=== PATIENT | male | born 1980 | race Hispanic/Latino ===

== ENCOUNTER 2018-03-03 20:01 | Inpatient (IN) | payer OTHER, SELFPAY ==
[~2018-03-03 20:01] MED LIST: ISOVUE-370 76%-LOCM 1 ML ONE
[2018-03-03 20:29] LABS: Hemoglobin 16.3 g/dL (14.0-18.0); Mean Corpuscular Hemoglobin 30.7 pg (27.0-31.0); Mean Corpuscular Volume 87.6 fL (78.0-98.0); Red Blood Cell (RBC) Count 5.32 mill/uL (4.70-6.10); White Blood Cell (WBC) Count 14.6 thou/uL (4.8-10.8)
[2018-03-03 20:30] LABS: #Basophils 0.1 thou/uL (0.0-0.2); #Eosinphils 0.2 thou/uL (0.0-0.7); #Lymphocytes 3.3 thou/uL (1.20-3.40); #Monocytes 1.1 thou/uL (0.11-0.59); #Neutrophils 9.9 thou/uL (1.40-6.50); %Basophils 0.5 % (0.0-1.0); %Eosinophils 1.6 % (0.0-10.0); %Lymphocytes 22.9 % (21.0-51.0); %Monocytes 7.3 % (0.0-10.0); %Neutrophils 67.7 % (42.0-75.0); Mean Platelet Volume 9.2 fL (7.4-10.4); Platelet Count 212 thou/uL (130-400); RBC Distribution Width 12.2 % (11.5-14.5)
[2018-03-03 20:37] LABS: INR-International Normal Ratio 0.9; PTT 24.7 SEC (22.9-36.1); Prothrombin Time 12.7 SEC (12.0-14.7)
[2018-03-03 20:43] LABS: Acetaminophen Less than 6.0 mcg/mL (10.0-30.0); Alcohol Less than 10 mg/dL (Less than 10); Salicylate Less than 8.0 mg/dL (15.0-30.0)
[2018-03-03 20:44] LABS: ALT (SGPT) 16 U/L (8-55); AST (SGOT) 20 U/L (5-34); Albumin 4.2 g/dL (3.5-5.0); Alkaline Phosphatase 79 U/L (40-150); Anion Gap 15 mmol/L (10-20); BUN (Urea Nitrogen) 21 mg/dL (8.9-20.6); Bilirubin, Total 0.3 mg/dL (0.2-1.2); CK (CPK) 85 U/L (30-200); Calc. Creatinine Clearance 0 mL/min (70-130); Calcium 9.5 mg/dL (7.8-10.44); Carbon Dioxide 19 mmol/L (22-29); Chloride 108 mmol/L (98-107); Estimated GFR-MDRD 62; Globulin 3.6 g/dL (2.4-3.5); Glucose 97 mg/dL (70-105); Lipase 18 U/L (8-78); Magnesium 2.3 mg/dL (1.6-2.6); Potassium 4.2 mmol/L (3.5-5.1); Protein, Total 7.8 g/dL (6.0-8.3); Sodium 138 mmol/L (136-145)
[2018-03-03 20:47] LABS: CKMB 1.2 ng/mL (0-6.6); Troponin I Less than 0.010 ng/mL (< 0.028)
--- NOTE | 2018-03-03 20:56 | CT ---
NONCONTRAST HEAD CT: 03/03/18 COMPARISON: 05/20/14. HISTORY: Altered mental status. Chest pain. Shortness of breath. Dizziness, starting approximately at 1800 paulo rs. Stroke alert. FINDINGS: No parenchymal hemorrhage. No extra-axial hematoma. No midline shift. Basilar cisterns are patent. Br ain volume is age appropriate. Cortical petersen-white matter differentiation is preserved. Ventricles and sulci are patent and symmetric. Adequate aeration of the sinuses and mastoid air cells. Calvarium is intact. IMPRESSION: No acute intracranial process. Results of the study discussed with Dr. Hernandez, 03/03/18 at 8:43 p.m. Code CR POS: [facility]
--- NOTE | 2018-03-03 20:58 | RAD ---
ONE VIEW CHEST: 03/03/18 HISTORY: Chest pain, shortness of breath. COMPARISON: 08/13/16. HISTORY: Stable left sided defibrillator. Persistent cardiomegaly. The pulmonary vessels and hilum are normal. Costophrenic angles are clear. No mass. No consolidation. No pneumothorax or osseous abnormality. IMPRESSION: No acute cardiopulmonary process. POS: [facility]
[2018-03-03] MEDS ORDERED: Tranexamic Acid 1,000 MG/10 ML VIAL ONE (21:04)
--- NOTE | 2018-03-03 21:04 | CT ---
CT ANGIOGRAM OF THE THORACIC AORTA 03/03/17 HISTORY: Evaluate for thoracic aorta dissection. COMPARISON: None. TECHNIQUE: CT angiogram of the thoracic aorta is performed in the axial plane. Three dimensional reformatted sandor ges are submitted for interpretation. FINDINGS: Heart is enlarged. There is no significant pericardial fluid. There is adequate contrast opacificatio n of the pulmonary artery to the level of the lobar arteries. No filling defect to suggest thromboemb olism. Unremarkable thyroid gland. The visualized upper solid organs are unremarkable. Trachea and central bronchi are patent. Minimal atelectatic changes of the lung parenchyma. No consol idation or mass. No pleural effusion or pneumothorax. The thoracic aorta and upper abdominal aorta have an overall normal caliber. No periaortic fat strand ing. No aneurysm. No dissection. The visualized celiac artery origin, superior mesenteric artery orig in, bilateral renal artery ostia are unremarkable. The visualized cervical carotid and vertebral arteries are grossly patent. Bilateral subclavian arter ies are grossly unremarkable. IMPRESSION: No evidence of thoracic aortic aneurysm or dissection. Results of the study discussed with Dr. Hernandez, 03/03/18 at 8:55 p.m. Code CR POS: [facility]
[2018-03-03] MEDS ORDERED: hydrALAZINE 20 MG/ML VIAL SLOW IVP PRN (22:52)
[2018-03-03] MEDS ORDERED: Labetalol HCl 100 MG/20 ML VIAL SLOW IVP PRN (22:52)
[2018-03-03] MEDS ORDERED: Ondansetron PF 4 MG/2 ML Vial IVP PRN (22:54)
[2018-03-03] MEDS ORDERED: Acetaminophen 325 MG TAB PO PRN (22:54)
[2018-03-03] MEDS ORDERED: Ondansetron ODT 4 MG TAB PO PRN (22:54)
--- NOTE | 2018-03-03 23:37 | CT ---
CT ANGIOGRAM OF THE HEAD CT ANGIOGRAM OF THE NECK 03/03/18 HISTORY: Stroke, stroke alert. Right sided weakness. COMPARISON: None. TECHNIQUE: CT angiogram of the head and neck are performed in the axial plane. Three dimensional reformatted sandor ges are submitted for interpretation. FINDINGS: Postcontrast head CT: No pathologic enhancement of the brain parenchyma. Cortical petersen-white matter differentiation appears to be preserved. Bilateral ocular lenses are appropriately located. Unremarkable orbits. Adequate aeration of the sinu ses and mastoid air cells. Aerodigestive tract is patent. No mucosal abnormality. Midline fatty raphae of the tongue is preserve d. Epiglottis has a normal caliber. No prevertebral soft tissue swelling. Symmetric attenuation of the parotid and submandibular glands. Sternocleidomastoid muscles and thyroi d gland are unremarkable. No evidence of lymphadenopathy by size criteria in the left neck. There is a mildly prominent right l evel II lymph node, nonspecific. Lymph node measures 1.1 x 1.1 cm. Nonspecific mild fullness of the p alatine tonsils. Upper mediastinum and lung apices are unremarkable. Cervical spine vertebral body height is maintained. There is no evidence of fracture. No significant canal stenosis or foraminal narrowing. Evaluation is limited by technique There is some evidence of o steophyte formation with at least some mass effect upon the central spinal canal at C3-C4, C4-C5 and C5-C6. Evaluation is limited by technique CT ANGIOGRAM: Visualized aortic arch has an appropriate enhancement and luminal diameter. RIGHT CAROTID: The right carotid artery origin has appropriate enhancement and luminal diameter. The common carotid artery, carotid bifurcation, and internal carotid artery have appropriate enhancement and luminal hilario meter. LEFT CAROTID: Left carotid artery origin has appropriate enhancement and luminal diameter. The left common carotid artery, carotid bifurcation, and internal carotid artery have appropriate enhancement and luminal hilario meter. Both subclavian arteries are patent. Bilateral cervical vertebral arteries are also patent throughout their course in the neck. Left vertebral artery is slightly larger on the contralateral side. CT ANGIOGRAM OF THE HEAD: There is symmetric enhancement and luminal diameter of the distal cervical intracranial internal sin tid arteries. ANTERIOR CIRCULATION: Symmetric enhancement and luminal diameter of the A1 and M1 segments. Symmetric enhancement and lumin al diameter of the proximal A2 segments and MCA branches. POSTERIOR CIRCULATION: Demonstrates normal caliber intracranial vertebral arteries. The left and right PICA artery origins a re grossly unremarkable. Both vertebral arteries supply normal appearing basilar artery. The left and right P1 segments have appropriate enhancement and luminal diameter. IMPRESSION: 1. Unremarkable CT angiogram of the [place]. 2. Unremarkable CT angiogram of the neck. No significant stenosis based upon NASCET criteria. 3. Degenerative changes of the cervical spine, incompletely evaluated. POS: [facility]
[2018-03-03 23:47] LABS: Troponin I 0.033 ng/mL (< 0.028)
[2018-03-04 02:19] LABS: #Basophils 0.1 thou/uL (0.0-0.2); #Eosinphils 0.3 thou/uL (0.0-0.7); #Lymphocytes 3.7 thou/uL (1.20-3.40); #Monocytes 1.1 thou/uL (0.11-0.59); #Neutrophils 9.4 thou/uL (1.40-6.50); %Basophils 0.6 % (0.0-1.0); %Eosinophils 1.8 % (0.0-10.0); %Lymphocytes 25.6 % (21.0-51.0); %Monocytes 7.4 % (0.0-10.0); %Neutrophils 64.6 % (42.0-75.0); Mean Corpuscular Hemoglobin 29.9 pg (27.0-31.0); Mean Corpuscular Volume 87.8 fL (78.0-98.0); Mean Platelet Volume 8.8 fL (7.4-10.4); Platelet Count 211 thou/uL (130-400); RBC Distribution Width 12.2 % (11.5-14.5); Red Blood Cell (RBC) Count 5.35 mill/uL (4.70-6.10); White Blood Cell (WBC) Count 14.5 thou/uL (4.8-10.8)
[2018-03-04 02:45] LABS: Troponin I 0.029 ng/mL (< 0.028)
[2018-03-04 06:51] LABS: ALT (SGPT) 14 U/L (8-55); AST (SGOT) 14 U/L (5-34); Alkaline Phosphatase 63 U/L (40-150); Anion Gap 11 mmol/L (10-20); BUN (Urea Nitrogen) 21 mg/dL (8.9-20.6); Bilirubin, Total 0.6 mg/dL (0.2-1.2); Calc. Creatinine Clearance 152 mL/min (70-130); Carbon Dioxide 23 mmol/L (22-29); Cardiac Risk 3.6 (Less than 4.5); Chloride 107 mmol/L (98-107); Cholesterol 139 mg/dl (< 200 Desired); Estimated GFR-MDRD 77; Glucose 82 mg/dL (70-105); HDL Cholesterol 39 mg/dL (>60 Neg Risk); LDL Cholesterol, Calculated 79 mg/dL; Potassium 3.8 mmol/L (3.5-5.1); Sodium 137 mmol/L (136-145); Triglycerides 106 mg/dL (Less than 150)
[2018-03-04] MEDS: Furosemide 20 MG TAB PO SCH (08:35)
[2018-03-04] MEDS: Spironolactone 25 MG TAB PO SCH (08:35)
[2018-03-04] MEDS: Famotidine 20 MG TAB PO SCH ×2 (08:35→21:31)
[2018-03-04] MEDS: Carvedilol 3.125 MG TAB PO SCH ×2 (08:35→19:29)
[2018-03-04] MEDS: Lisinopril 2.5 MG TAB PO SCH (08:36)
[2018-03-04] MEDS ORDERED: Famotidine/PF 20 mg/2ml Vial SLOW IVP SCH (09:00)
[2018-03-04] MEDS ORDERED: niCARdipine HCl 25 MG in Sodium Chloride 0.9% 250 ML 240 ML IVPB PRN (09:17)
[2018-03-04] MEDS ORDERED: Labetalol HCl 100 MG/20 ML VIAL SLOW IVP PRN (09:17)
[2018-03-04] MEDS ORDERED: Communication Order-Pharmacy FS SCH (09:17)
[2018-03-04] MEDS ORDERED: hydrALAZINE 20 MG/ML VIAL SLOW IVP PRN (09:20)
[2018-03-04] MEDS ORDERED: niCARdipine HCl 25 MG in Sodium Chloride 0.9% 250 ML 240 ML IVPB SCH (09:45)
--- NOTE | 2018-03-04 10:04 | RAD ---
PORTABLE CHEST: HISTORY: Syncope, TIA. FINDINGS: Heart size is enlarged. An internal defibrillator device is present. The lungs are clear of infiltr ates. No signs of failure. IMPRESSION: Cardiomegaly. POS: [facility]
--- NOTE | 2018-03-04 11:28 | CON ---
DATE OF CONSULTATION: 03/04/2018 REASON FOR CONSULTATION: Stroke and cardiomyopathy. HISTORY OF PRESENT ILLNESS: Mr. Shafer is a pleasant 37-year-old white gentleman who comes to the hospital for right-sided weakness. He is currently unable to move his right arm and right leg. He is able to talk without problems. He had a TPA given to him after CT showed no evidence of bleeding. He had a CT angiogram of the head and neck and these were unremarkable suggestive of his TPA having have worked. He has a history of a nonischemic cardiomyopathy with an EF about 10%, thought to be r elated to alcohol use and substance abuse. He has not been following up with anyone recently. He garcia s been in intermediate and currently is under custody of the [employer] department. He initially had chest pain at that time where he was brought in, but he has not had any chest pain s sahil. PAST MEDICAL HISTORY: 1. Nonischemic cardiomyopathy, EF of 10% to 15%. 2. Hypertension. 3. Hyperlipidemia. 4. Noncompliance. PAST SURGICAL HISTORY: 1. Heart catheterization and no coronary artery disease. 2. AICD placement. OUTPATIENT MEDICATIONS: Include: 1. Lasix 20 mg a day. 2. Lisinopril 2.5 mg a day. 3. Carvedilol 3.125 mg b.i.d. ALLERGIES: PENICILLINS. FAMILY HISTORY: Noncontributory. SOCIAL HISTORY: No alcohol use. 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 REVIEW OF SYSTEMS: A 12-point review of systems was done and is all negative unless stated in histor y of present illness. PHYSICAL EXAMINATION: VITAL SIGNS: Temperature 98.0, pulse 75, respiratory rate 18, satting 97% on room air, blood pressur e 109/62. GENERAL: Awake, alert, oriented x3, in no distress. HEENT: Normocephalic, atraumatic. NECK: Supple. LUNGS: Lungs are clear. CARDIOVASCULAR: S1, S2, no S3, S4, no murmur. ABDOMEN: Soft, positive bowel sounds. EXTREMITIES: No edema. SKIN: Warm and dry. NEUROLOGIC: Right-sided weakness. LABORATORY WORK: Reviewed. CBC was reviewed. Coags, chemistries were reviewed. Troponin is in the indeterminate range undetectable then 0.03, then 0.02. BNP was 25. Albumin of 4.0. Triglycerides of 106. Cholesterol of 139, LDL of 79, HDL of 39. Toxicology, everything is undetectable. IMAGING: CT of the [place] with contrast was normal. CT dissection was unremarkable. CT o f the brain was unremarkable as well. ASSESSMENT: 1. Acute cerebrovascular accident. 2. Nonischemic cardiomyopathy. 3. Dilated cardiomyopathy. 4. Status post automatic implantable cardioverter defibrillator placement. 5. Noncompliance. PLAN: 1. Certainly with a history of a dilated cardiomyopathy and having an acute CVA, this brings the pos sibility of this being a cardioembolic phenomenon most likely. I would recommend full anticoagulatio n with any of the new agents or warfarin, either Eliquis, Xarelto, Pradaxa or warfarin. I would not start this just yet. He had TPA and I would probably begin the blood thinner in about 2 weeks from t he date of the insult to reduce the risk of intracranial bleed and hemorrhagic conversion. 2. He needs to be on a baby aspirin every day for the rest of his life. 3. We would recommend the addition of a statin drug as well. Thank you for letting us to participate in the care of your patient. Over 45 minutes spent at bedside for Critical Care.
[2018-03-04 16:05] VITALS: BMI 37.3
--- NOTE | 2018-03-04 16:15 | PDOC.PN ---
- Subjective Encounter Start Date: 03/04/18 Encounter Start Time: 10:30 Patient seen and examined for Acute CVA s/p TPA. No new focal deficits. Able to move his Rt hand to some extent. - Objective Resuscitation Status: Resuscitation Status FULL:Full Resuscitation MAR Reviewed: Yes Vital Signs & Weight: Vital Signs (12 hours) Temp Pulse BP Pulse Ox 03/04/18 12:00 98.3 F 03/04/18 09:51 90 153/94 H 03/04/18 08:36 67 153/94 H 03/04/18 08:00 98 F 96 Weight Weight 252 lb 6.868 oz Most Recent Monitor Data Heart Rate from ECG 75 NIBP 129/84 NIBP BP-Mean 94 Respiration from ECG 21 SpO2 96 I&O: 03/03/18 03/04/18 03/05/18 06:59 06:59 06:59 Intake Total 720 370 Output Total 750 860 Balance -30 -490 Result Diagrams: 03/05/18 03:54 03/05/18 03:54 Additional Labs: Accuchecks 03/03/18 20:16 POC Glucose 99 Radiology Reviewed by me: Yes (CT brain - neg) EKG Reviewed by me: Yes (Tele paced) Phys Exam - Physical Examination Constitutional: NAD Respiratory: no wheezing, no rales, no rhonchi, clear to auscultation bilateral Cardiovascular: RRR, no rub no heaves/pulsations Gastrointestinal: soft, non-tender, no distention, positive bowel sounds Musculoskeletal: no edema, pulses present Neurological: moves all 4 limbs (except R sided with diminished sensation on the Rt) Psychiatric: normal affect, A&O x 3 Skin: no rash Dx/Plan - Plan DVT proph w/SCDs 1. Acute CVA with Rt hemiparesis s/p TPA 2. Chronic systolic HF EF 20% - Stage C 3. Obesity BMI 37 4. HTN crisis 5. Other issues per H&P by Dr Brooks PLAN: Add Cardene drip and Labetalol PRN for SBP <180 Await Echo Cont ASA Consult Cardiology due to possible Embolic CVA No MRI due to AICD Review of Systems - Review of Systems Respiratory: negative: Cough, Dry, Shortness of Breath, Hemoptysis, SOB with Excertion, Pleuritic Pain, Sputum, Wheezing Cardiovascular: negative: chest pain, palpitations, orthopnea, paroxysmal nocturnal dyspnea, edema, light headedness, other Gastrointestinal: negative: Nausea, Vomiting, Abdominal Pain, Diarrhea, Constipation, Melena, Hematochezia, Other - Medications/Allergies Allergies/Adverse Reactions: Allergies Allergy/AdvReac Type Severity Reaction Status Date / Time Penicillins Allergy Verified 03/04/18 00:08 Medications: Current Medications Acetaminophen (Tylenol) 650 mg PO Q4H PRN PRN Reason: Headache/Fever/Mild Pain (1-3) Last Admin: 03/04/18 02:23 Dose: 650 mg Aspirin (Ecotrin) 325 mg PO DAILY [facility] Atorvastatin Calcium (Lipitor) 80 mg PO HS [facility] Atorvastatin Calcium (Lipitor) 40 mg PO HS [facility] Carvedilol (Coreg) 3.125 mg PO BID-[facility] Last Admin: 03/04/18 08:35 Dose: 3.125 mg Famotidine (Pepcid) 20 mg PO BID [facility] Last Admin: 03/04/18 08:35 Dose: 20 mg Furosemide (Lasix) 20 mg PO DAILY [facility] Last Admin: 03/04/18 08:35 Dose: 20 mg Hydralazine HCl (Apresoline) 10 mg SLOW IVP Q4H PRN PRN Reason: SBP Greater Than 180 Nicardipine HCl 25 mg/ Sodium (Chloride) 250 mls @ 0 mls/hr IVPB INF [facility]; Protocol Last Admin: 03/04/18 10:07 Dose: 250 mls Labetalol HCl (Normodyne) 10 mg SLOW IVP Q2H PRN PRN Reason: SBP > 180 or DBP > 105 Last Admin: 03/04/18 09:51 Dose: 10 mg Lisinopril (Zestril) 2.5 mg PO DAILY [facility] Last Admin: 03/04/18 08:36 Dose: 2.5 mg Lorazepam (Ativan) 1 mg SLOW IVP Q4H PRN PRN Reason: Anxiety/Agitation Miscellaneous Information (Communication Order-Pharmacy) 1 each FS ONE [facility] Stop: 03/04/18 21:00 Ondansetron HCl (Zofran Odt) 4 mg PO Q6H PRN PRN Reason: Nausea/Vomiting Ondansetron HCl (Zofran) 4 mg IVP Q6H PRN PRN Reason: Nausea/Vomiting Sodium Chloride (Flush - Normal Saline) 10 ml IVF PRN PRN PRN Reason: Saline Flush Spironolactone (Aldactone) 25 mg PO DAILY [facility] Last Admin: 03/04/18 08:35 Dose: 25 mg
--- NOTE | 2018-03-04 18:03 | CON ---
DATE OF CONSULTATION: 03/04/2018 Mr. Shafer is an [facility] inmate who presented with hemiplegia. He is presenting with chest discomfort. Imaging has not showed any hemorrhage or thrombotic event. He has a pacemaker defibrillator in place that is not MRI compatible apparently, so he cannot have an MRI. He was given TPA and is in the ICU for TPA observation protocol. PAST MEDICAL HISTORY: 1. Remarkable for cardiomyopathy with defibrillator being placed in the past, 2015. 2. History of hypertension. 3. Lipid disorder. 4. Negative cardiac catheterization for coronary artery disease. FAMILY HISTORY: Not obtained: SOCIAL HISTORY: He is a smoker, former methamphetamine user. Reports allergies to PENICILLIN. REVIEW OF SYSTEMS: 10 point review of systems completed, otherwise negative. PHYSICAL EXAMINATION: GENERAL: He is presenting with chest discomfort. VITAL SIGNS: Afebrile, heart rate is in the 70s, respiratory rate is 18, oximetry is 97%, blood pressure 109/62. HEAD: Unremarkable. NECK: Unremarkable. LUNGS: Clear. HEART: Regular rhythm. S1 and S2 are normal. ABDOMEN: Soft and nontender. EXTREMITIES: Without clubbing, cyanosis, or edema. He did not have a Babinski on either side. I think, we have to be concerned that he may have had an embolic event, but certainly imaging does not show that. Repeat imaging in a couple of days with a noncontrast CT would properly identify if he had a thrombotic or embolic event. It seems like his exam is a little inconsistent, reviewing the notes of other examiners.Neurology input would be helpful. We will continue to follow. He appears to be stable from a cardiopulmonary standpoint. This is a 70 minute consult, with greater than 50% of time spent on unit in coordination of care. SHEIL[facility]
--- NOTE | 2018-03-04 18:46 | CON ---
DATE OF CONSULTATION: 03/04/2018 IMPRESSION: 1. Probable small vessel stroke resulting in right hemiparesis. 2. History of congestive heart failure with ejection fraction of around 30%. 3. History of substance abuse. 4. Tobacco use. PLAN: 1. Repeat CT scan of the brain in the morning. 2. Start antiplatelet therapy after the 24-hour window. 3. Start statin as well. 4. PT and OT evaluations. Mr. Shafer is a 37-year-old male with a known history of congestive heart failure [facility] and had a CT angiogram done. There was no carotid or intracranial stenosis identified. Given his neurologic deficits, TPA was given around 9:00 last night. He has failed to s how any significant improvement in his strength. He denies any past history of similar events. He d oes report a frontal headache. He has otherwise been stable since admission. PAST MEDICAL HISTORY: As listed above. ALLERGIES: PENICILLIN. SOCIAL HISTORY: Positive for tobacco. FAMILY HISTORY: Noncontributory. REVIEW OF SYSTEMS: Positive for asthma and hepatic dysfunction in the past. PHYSICAL EXAMINATION: GENERAL: He is a well-nourished middle-aged man in no distress. VITAL SIGNS: Blood pressure 131/81, pulse 79 and in sinus rhythm, respirations 17, saturation is 96% . HEENT: Pupils are equal. Conjunctivae clear. Oropharynx clear. EXTREMITIES: No cyanosis, clubbing or edema. NEUROLOGIC: He is alert and cooperative. His speech is fluent and clear. There is a subtle right f acial droop. No sensory deficits were noted in the face. He reports some subjective decreased sensa tion in the right hand. He could partially move the right arm against gravity. He reports no antigr avity strength whatsoever in the right leg. Plantar response was mute on the right. No abnormal mov ements were seen. SUMMARY: A 37-year-old man who presents with a stroke. He may have thrown a small embolus to a deep vessel based on the lack of findings on CTA. I would suggest at least antiplatelet therapy after he has 24-hour window. 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
[2018-03-04] MEDS ORDERED: Famotidine 20 MG TAB PO SCH (21:00)
[2018-03-04] MEDS ORDERED: Atorvastatin Calcium 40 MG TAB PO SCH (21:00)
[2018-03-04] MEDS: Atorvastatin Calcium 40 MG TAB PO SCH (21:30)
[2018-03-05] MEDS: Lorazepam 2 MG/ML VIAL SLOW IVP PRN ×2 (01:05→21:36)
[2018-03-05 04:32] LABS: #Basophils 0.1 thou/uL (0.0-0.2); #Eosinphils 0.4 thou/uL (0.0-0.7); #Monocytes 1.1 thou/uL (0.11-0.59); #Neutrophils 9.2 thou/uL (1.40-6.50); %Basophils 0.8 % (0.0-1.0); %Eosinophils 2.7 % (0.0-10.0); %Lymphocytes 21.9 % (21.0-51.0); %Monocytes 8.2 % (0.0-10.0); %Neutrophils 66.5 % (42.0-75.0); Mean Corpuscular HGB CONC 34.2 g/dL (32.0-36.0); Mean Corpuscular Hemoglobin 30.1 pg (27.0-31.0); Mean Corpuscular Volume 88.2 fL (78.0-98.0); Mean Platelet Volume 9.1 fL (7.4-10.4); Platelet Count 198 thou/uL (130-400); RBC Distribution Width 12.2 % (11.5-14.5); Red Blood Cell (RBC) Count 5.31 mill/uL (4.70-6.10); White Blood Cell (WBC) Count 13.9 thou/uL (4.8-10.8)
[2018-03-05 04:57] LABS: ALT (SGPT) 15 U/L (8-55); AST (SGOT) 13 U/L (5-34); Albumin 4.1 g/dL (3.5-5.0); Alkaline Phosphatase 67 U/L (40-150); Anion Gap 11 mmol/L (10-20); BUN (Urea Nitrogen) 18 mg/dL (8.9-20.6); Bilirubin, Total 0.7 mg/dL (0.2-1.2); Calc. Creatinine Clearance 166 mL/min (70-130); Calcium 9.2 mg/dL (7.8-10.44); Carbon Dioxide 23 mmol/L (22-29); Cardiac Risk 4.2 (Less than 4.5); Chloride 106 mmol/L (98-107); Cholesterol 147 mg/dl (< 200 Desired); Estimated GFR-MDRD 86; Globulin 3.2 g/dL (2.4-3.5); Glucose 82 mg/dL (70-105); HDL Cholesterol 35 mg/dL (>60 Neg Risk); LDL Cholesterol, Calculated 83 mg/dL; Magnesium 2.2 mg/dL (1.6-2.6); Protein, Total 7.3 g/dL (6.0-8.3); Sodium 136 mmol/L (136-145); Triglycerides 144 mg/dL (Less than 150)
[2018-03-05] MEDS: Carvedilol 3.125 MG TAB PO SCH ×2 (08:44→16:58)
[2018-03-05] MEDS: Aspirin 325 mg Enteric Coated Tablet PO SCH (08:44)
[2018-03-05] MEDS: Furosemide 20 MG TAB PO SCH (08:44)
[2018-03-05] MEDS: Famotidine 20 MG TAB PO SCH ×2 (08:44→21:25)
[2018-03-05] MEDS: Lisinopril 2.5 MG TAB PO SCH (08:44)
[2018-03-05] MEDS: Spironolactone 25 MG TAB PO SCH (08:44)
[2018-03-05] MEDS ORDERED: Aspirin 81 mg Enteric Coated Tablet PO SCH (09:00)
--- NOTE | 2018-03-05 11:02 | PRG ---
DATE OF SERVICE: 03/05/2018 SUBJECTIVE: Mr. Shafer' vital signs are stable. Blood pressure 106/68, heart rate 75, respiratory rates in the teens, oximetry is 97 on 2 liters. He is moving his right upper extremity to command today, He has completed his TPA window for standard critical care unit. His ejection fraction is 20-25% on his echocardiogram done yesterday. OBJECTIVE: LUNGS: Clear. HEART: Regular rhythm. ABDOMEN: Soft and nontender. EXTREMITIES: Without edema. LABORATORY DATA: White count 13.9, hemoglobin 16.0, platelets 198,000. Electrolytes are normal. IMPRESSION: ? Cerebrovascular associated with cardiomyopathy. A CT was ordered by Dr. Weir today. We will continue to follow. He is stable to move out of Critical Care Unit in my opinion. Critical care time is 35 minutes. [facility]
--- NOTE | 2018-03-05 11:33 | CT ---
CT BRAIN WITHOUT CONTRAST: HISTORY: CVA post TPA. COMPARISON: CT brain 03/03/2018. FINDINGS: No acute hemorrhage. NO loss of petersen-white matter differentiation. No midline shift or mass effect. The calvarium is intact. The paranasal sinuses and mastoids are clear. IMPRESSION: No acute intracranial abnormality. POS: [facility]
--- NOTE | 2018-03-05 14:25 | PDOC.PN ---
- Subjective Encounter Start Date: 03/05/18 Encounter Start Time: 10:30 Patient seen and examined for Acute CVA. No new focal findings. RUE strength improving. No new complaints. No overnight events - Objective Resuscitation Status: Resuscitation Status FULL:Full Resuscitation MAR Reviewed: Yes Vital Signs & Weight: Vital Signs (12 hours) Temp Pulse Resp BP BP Pulse Ox 03/05/18 12:05 98.1 F 76 17 141/89 H 03/05/18 08:44 75 106/68 03/05/18 08:00 94 L 03/05/18 07:42 97 03/05/18 07:00 97.8 F 03/05/18 04:00 97.8 F 95 Weight Weight 251 lb Most Recent Monitor Data Heart Rate from ECG 78 NIBP 143/86 NIBP BP-Mean 102 Respiration from ECG 21 SpO2 96 I&O: 03/04/18 03/05/18 03/06/18 06:59 06:59 06:59 Intake Total 720 840 Output Total 750 1660 800 Balance -30 -820 -800 Result Diagrams: 03/05/18 03:54 03/05/18 03:54 EKG Reviewed by me: Yes (Tele SR) Phys Exam - Physical Examination Constitutional: NAD Respiratory: no wheezing, no rhonchi Cardiovascular: RRR, no rub Gastrointestinal: soft, non-tender, positive bowel sounds Musculoskeletal: no edema Neurological: moves all 4 limbs Dx/Plan - Plan DVT proph w/SCDs 1. Acute CVA with Rt hemiparesis s/p TPA 2. Chronic systolic HF EF 20% - Stage C 3. Obesity BMI 37 4. HTN crisis 5. Other issues per H&P by Dr Brooks PLAN: Add Cardene drip and Labetalol PRN for SBP <180 Echo reviewed Cont ASA / Statins Cont PT/OT Add Lovenox for DVT prophylaxis Transfer to Stroke Review of Systems - Review of Systems Respiratory: negative: Cough, Dry, Shortness of Breath, Hemoptysis, SOB with Excertion, Pleuritic Pain, Sputum, Wheezing Cardiovascular: negative: chest pain, palpitations, orthopnea, paroxysmal nocturnal dyspnea, edema, light headedness, other - Medications/Allergies Allergies/Adverse Reactions: Allergies Allergy/AdvReac Type Severity Reaction Status Date / Time Penicillins Allergy Verified 03/04/18 00:08 Medications: Current Medications Acetaminophen (Tylenol) 650 mg PO Q4H PRN PRN Reason: Headache/Fever/Mild Pain (1-3) Last Admin: 03/04/18 02:23 Dose: 650 mg Aspirin (Ecotrin) 325 mg PO DAILY [facility] Last Admin: 03/05/18 08:44 Dose: 325 mg Atorvastatin Calcium (Lipitor) 40 mg PO HS [facility] Last Admin: 03/04/18 21:30 Dose: 40 mg Carvedilol (Coreg) 3.125 mg PO BID-[facility] Last Admin: 03/05/18 08:44 Dose: 3.125 mg Famotidine (Pepcid) 20 mg PO BID [facility] Last Admin: 03/05/18 08:44 Dose: 20 mg Furosemide (Lasix) 20 mg PO DAILY [facility] Last Admin: 03/05/18 08:44 Dose: 20 mg Hydralazine HCl (Apresoline) 10 mg SLOW IVP Q4H PRN PRN Reason: SBP Greater Than 180 Nicardipine HCl 25 mg/ Sodium (Chloride) 250 mls @ 0 mls/hr IVPB INF [facility]; Protocol Last Admin: 03/04/18 10:07 Dose: 250 mls Labetalol HCl (Normodyne) 10 mg SLOW IVP Q2H PRN PRN Reason: SBP > 180 or DBP > 105 Last Admin: 03/04/18 09:51 Dose: 10 mg Lisinopril (Zestril) 2.5 mg PO DAILY [facility] Last Admin: 03/05/18 08:44 Dose: 2.5 mg Lorazepam (Ativan) 1 mg SLOW IVP Q4H PRN PRN Reason: Anxiety/Agitation Last Admin: 03/05/18 01:05 Dose: 1 mg Ondansetron HCl (Zofran Odt) 4 mg PO Q6H PRN PRN Reason: Nausea/Vomiting Ondansetron HCl (Zofran) 4 mg IVP Q6H PRN PRN Reason: Nausea/Vomiting Sodium Chloride (Flush - Normal Saline) 10 ml IVF PRN PRN PRN Reason: Saline Flush Last Admin: 03/05/18 01:05 Dose: 10 ml Spironolactone (Aldactone) 25 mg PO DAILY [facility] Last Admin: 03/05/18 08:44 Dose: 25 mg
--- NOTE | 2018-03-05 16:21 | PRG ---
DATE OF SERVICE: 03/05/2018 SUBJECTIVE: Edward Shafer had a repeat head CT this afternoon without contrast. No evidence of a t hrombotic event is seen. This would make me wonder if this is more hemiparesis for secondary gain. If he had something that would keep him from moving his right arm and right leg, I would expect to se e something on the CT. He was noticed to be able to push himself up in bed late yesterday afternoon using his right arm. We will continue with supportive care.
[2018-03-05] MEDS: Atorvastatin Calcium 40 MG TAB PO SCH (21:25)
[2018-03-06] MEDS: Furosemide 20 MG TAB PO SCH (08:10)
[2018-03-06] MEDS: Famotidine 20 MG TAB PO SCH ×2 (08:10→21:11)
[2018-03-06] MEDS: Spironolactone 25 MG TAB PO SCH (08:10)
[2018-03-06] MEDS: Aspirin 325 mg Enteric Coated Tablet PO SCH (08:10)
[2018-03-06] MEDS: Carvedilol 3.125 MG TAB PO SCH ×2 (08:10→16:25)
[2018-03-06] MEDS: Lisinopril 2.5 MG TAB PO SCH (08:10)
[2018-03-06] MEDS: Enoxaparin Sodium 40 MG/0.4 ML SYRINGE SC SCH (08:11)
--- NOTE | 2018-03-06 12:08 | PDOC.PN ---
- Subjective Encounter Start Date: 03/06/18 Encounter Start Time: 09:00 Patient seen and examined for CVA. No new focal deficits. No overnight events - Objective Resuscitation Status: Resuscitation Status FULL:Full Resuscitation MAR Reviewed: Yes Vital Signs & Weight: Vital Signs (12 hours) Temp Pulse Pulse Resp BP BP BP 03/06/18 11:31 98.5 F 73 18 133/88 03/06/18 09:50 81 123/87 03/06/18 08:15 03/06/18 08:10 69 109/63 03/06/18 07:35 97.8 F 69 18 109/63 03/06/18 04:00 97.6 F 74 14 95/57 L Pulse Ox 03/06/18 11:31 94 L 03/06/18 09:50 03/06/18 08:15 97 03/06/18 08:10 03/06/18 07:35 97 03/06/18 04:00 95 Weight Weight 248 lb Most Recent Monitor Data Heart Rate from ECG 78 NIBP 143/86 NIBP BP-Mean 102 Respiration from ECG 21 SpO2 96 I&O: 03/05/18 03/06/18 03/07/18 06:59 06:59 06:59 Intake Total 840 740 Output Total 1660 1915 Balance -820 -1175 Result Diagrams: 03/05/18 03:54 03/05/18 03:54 EKG Reviewed by me: Yes (Tele SR) Phys Exam - Physical Examination Constitutional: NAD Respiratory: no wheezing, no rhonchi Cardiovascular: RRR, no rub Gastrointestinal: soft, non-tender, positive bowel sounds Musculoskeletal: no edema Neurological: moves all 4 limbs except RLE. RLE strength 3-4/5 Psychiatric: normal affect, A&O x 3 Dx/Plan - Plan DVT proph w/SCDs 1. Acute CVA with Rt hemiparesis s/p TPA - improving 2. Chronic systolic HF EF 20% - Stage C 3. Obesity BMI 37 4. HTN crisis 5. Other issues per H&P by Dr Brooks PLAN: Cont ASA / Statins Cont PT/OT Lovenox for DVT prophylaxis DC planning Review of Systems - Review of Systems Respiratory: negative: Cough, Dry, Shortness of Breath, Hemoptysis, SOB with Excertion, Pleuritic Pain, Sputum, Wheezing Cardiovascular: negative: chest pain, palpitations, orthopnea, paroxysmal nocturnal dyspnea, edema, light headedness, other - Medications/Allergies Allergies/Adverse Reactions: Allergies Allergy/AdvReac Type Severity Reaction Status Date / Time Penicillins Allergy Verified 03/04/18 00:08 Medications: Current Medications Acetaminophen (Tylenol) 650 mg PO Q4H PRN PRN Reason: Headache/Fever/Mild Pain (1-3) Last Admin: 03/04/18 02:23 Dose: 650 mg Aspirin (Ecotrin) 325 mg PO DAILY [facility] Last Admin: 03/06/18 08:10 Dose: 325 mg Atorvastatin Calcium (Lipitor) 40 mg PO HS [facility] Last Admin: 03/05/18 21:25 Dose: 40 mg Carvedilol (Coreg) 3.125 mg PO BID-[facility] Last Admin: 03/06/18 08:10 Dose: 3.125 mg Enoxaparin Sodium (Lovenox) 40 mg SC 0900 [facility] Last Admin: 03/06/18 08:11 Dose: 40 mg Famotidine (Pepcid) 20 mg PO BID [facility] Last Admin: 03/06/18 08:10 Dose: 20 mg Furosemide (Lasix) 20 mg PO DAILY [facility] Last Admin: 03/06/18 08:10 Dose: 20 mg Hydralazine HCl (Apresoline) 10 mg SLOW IVP Q4H PRN PRN Reason: SBP Greater Than 180 Labetalol HCl (Normodyne) 10 mg SLOW IVP Q2H PRN PRN Reason: SBP > 180 or DBP > 105 Last Admin: 03/04/18 09:51 Dose: 10 mg Lisinopril (Zestril) 2.5 mg PO DAILY [facility] Last Admin: 03/06/18 08:10 Dose: 2.5 mg Lorazepam (Ativan) 1 mg SLOW IVP Q4H PRN PRN Reason: Anxiety/Agitation Last Admin: 03/05/18 21:36 Dose: 1 mg Ondansetron HCl (Zofran Odt) 4 mg PO Q6H PRN PRN Reason: Nausea/Vomiting Ondansetron HCl (Zofran) 4 mg IVP Q6H PRN PRN Reason: Nausea/Vomiting Sodium Chloride (Flush - Normal Saline) 10 ml IVF PRN PRN PRN Reason: Saline Flush Last Admin: 03/05/18 01:05 Dose: 10 ml Spironolactone (Aldactone) 25 mg PO DAILY [facility] Last Admin: 03/06/18 08:10 Dose: 25 mg
[2018-03-06] MEDS ORDERED: cloNIDine 0.1 MG TAB PO PRN (12:20)
[2018-03-06] MEDS: Atorvastatin Calcium 40 MG TAB PO SCH (21:11)
[2018-03-06] MEDS ORDERED: Nicotine 21 MG PATCH TOP SCH (21:45)
[2018-03-06] MEDS: Lorazepam 1 MG TAB PO PRN (22:18)
--- NOTE | 2018-03-06 23:15 | PDOC.CTH ---
<Gretta Hernandez - Last Filed: 03/06/18 23:09> Cardiology Progress Note - Subjective The pt seen and examined. No overnight events. No cardiac complaints. - Objective Vital Signs Temp Pulse Resp BP BP Pulse Ox 03/06/18 20:00 99 F 78 16 123/71 93 L 03/06/18 15:48 98.5 F 86 20 117/58 L 93 L 03/06/18 11:31 98.5 F 73 18 133/88 94 L Weight 248 lb 03/05/18 03/06/18 03/07/18 06:59 06:59 06:59 Intake Total 840 740 500 Output Total 1660 1915 500 Balance -820 -1175 0 - Physical Examination General/Neuro: alert & oriented x3 Neck: no JVD present Lungs: CTA Heart: RRR Abdomen: soft Extremities: other: (No edema) - Telemetry Telemetry Rhythm: SR - Labs Result Diagrams: 03/05/18 03:54 03/05/18 03:54 Troponin/CKMB CK-MB (CK-2) 1.2 ng/mL (0-6.6) 03/03/18 20:19 Troponin I 0.029 ng/mL (< 0.028) H 03/04/18 02:11 - Assessment/Plan 1. Acute CVA with Rt hemiparesis s/p TPA - improving; holding OACs for at least 2 wks for dilated CMY to prevent bleeding 2. Chronic systolic HF EF 20% - stable; On Bblocker, JESSEE, Lasix, and spironolactone 3. Dilated/Non-ischemic CMY 2/2 ETOH and illicit drug abuse and Hx of AICD placement - stable; possible starting OAC 4. HTN - stable with current med 5. Hyperlipidemia - on Statin 6. Obesity 7. Non-complaint of treatment - Strongly recommend to follow tx plan and f/u with her providers. MAR reviewed Review of Systems - Review of Systems Constitutional: reports: no symptoms reported EENTM: reports: no symptoms reported Respiratory: reports: no symptoms reported Cardiac (ROS): reports: no symptoms reported ABD/GI: reports: no symptoms reported : reports: no symptoms reported Musculoskeletal: reports: no symptoms reported Skin: reports: no symptoms reported <Cresencio Yang - Last Filed: 03/06/18 23:18> Cardiology Progress Note - Objective Vital Signs Temp Pulse Resp BP BP Pulse Ox 03/06/18 20:00 99 F 78 16 123/71 93 L 03/06/18 15:48 98.5 F 86 20 117/58 L 93 L 03/06/18 11:31 98.5 F 73 18 133/88 94 L Weight 248 lb 03/05/18 03/06/18 03/07/18 06:59 06:59 06:59 Intake Total 840 740 500 Output Total 1660 1915 500 Balance -820 -1175 0 - Labs Result Diagrams: 03/05/18 03:54 03/05/18 03:54 Troponin/CKMB CK-MB (CK-2) 1.2 ng/mL (0-6.6) 03/03/18 20:19 Troponin I 0.029 ng/mL (< 0.028) H 03/04/18 02:11 - Assessment/Plan Pt.seen and eval. by me.I agree with the A/P by the MARINE REPORTER.Nonew complaints.Chest clear.RRR.
[2018-03-07] MEDS: Lisinopril 2.5 MG TAB PO SCH (10:13)
[2018-03-07] MEDS: Spironolactone 25 MG TAB PO SCH (10:15)
[2018-03-07] MEDS: Aspirin 325 mg Enteric Coated Tablet PO SCH (10:15)
[2018-03-07] MEDS: Furosemide 20 MG TAB PO SCH (10:15)
[2018-03-07] MEDS: Famotidine 20 MG TAB PO SCH ×2 (10:15→20:16)
[2018-03-07] MEDS: Enoxaparin Sodium 40 MG/0.4 ML SYRINGE SC SCH (10:16)
[2018-03-07] MEDS: Carvedilol 3.125 MG TAB PO SCH ×2 (10:16→18:08)
--- NOTE | 2018-03-07 14:15 | PDOC.CTH ---
Cardiology Progress Note - Subjective No new issues. Remains weak on the right arm and leg, He is regaining some movement of the right hand. - Objective Vital Signs Temp Pulse Resp BP BP BP Pulse Ox 03/07/18 12:00 98.7 F 98 16 160/104 H 97 03/07/18 10:13 82 142/86 H 03/07/18 07:43 97.9 F 82 20 131/78 96 03/07/18 04:00 97.6 F 69 12 129/78 96 Weight 248 lb 03/06/18 03/07/18 03/08/18 06:59 06:59 06:59 Intake Total 740 500 Output Total 1915 500 Balance -1175 0 - Physical Examination General/Neuro: alert & oriented x3, NAD Neck: no JVD present Lungs: CTA, unlabored respirations Heart: RRR Abdomen: NT/ND Extremities: other: (no edema.) - Telemetry Telemetry Rhythm: NSR - Labs Result Diagrams: 03/05/18 03:54 03/05/18 03:54 Troponin/CKMB CK-MB (CK-2) 1.2 ng/mL (0-6.6) 03/03/18 20:19 Troponin I 0.029 ng/mL (< 0.028) H 03/04/18 02:11 - Assessment/Plan 1. Dilated non ischemic CM. 2. HTN 3. HLP 4. Acute CVA 5. LVEF at 10-15% 6. S/P AICD. PLAN: - Would start full anticoagulation 2 weeks after acute CVA, would start Eliquis 5 mg PO BID.
[2018-03-07] MEDS ORDERED: Lisinopril 2.5 MG TAB PO SCH (15:45)
[2018-03-07] MEDS ORDERED: Furosemide 20 MG TAB PO SCH (15:45)
--- NOTE | 2018-03-07 17:41 | PDOC.PN ---
- Subjective Encounter Start Date: 03/07/18 Encounter Start Time: 12:00 Patient seen and examined for Acute CVA. No new focal deficits. No new complaints. No overnight events - Objective Resuscitation Status: Resuscitation Status FULL:Full Resuscitation MAR Reviewed: Yes Vital Signs & Weight: Vital Signs (12 hours) Temp Pulse Resp BP BP Pulse Ox 03/07/18 16:00 99.0 F 97 20 139/88 96 03/07/18 15:42 88 139/88 03/07/18 12:00 98.7 F 98 16 160/104 H 97 03/07/18 10:13 82 142/86 H 03/07/18 07:43 97.9 F 82 20 131/78 96 Weight Weight 248 lb Most Recent Monitor Data Heart Rate from ECG 78 NIBP 143/86 NIBP BP-Mean 102 Respiration from ECG 21 SpO2 96 I&O: 03/06/18 03/07/18 03/08/18 06:59 06:59 06:59 Intake Total 740 500 Output Total 1915 500 Balance -1175 0 Result Diagrams: 03/05/18 03:54 03/05/18 03:54 EKG Reviewed by me: Yes (Tele SR) Phys Exam - Physical Examination Constitutional: NAD Respiratory: no wheezing, no rhonchi Cardiovascular: RRR, no rub Gastrointestinal: soft, non-tender, positive bowel sounds Musculoskeletal: no edema Neurological: moves all 4 limbs (except RLE, No new focal findings) Psychiatric: A&O x 3 Dx/Plan - Plan DVT proph w/lovenox, DVT proph w/SCDs 1. Acute CVA with Rt hemiparesis s/p TPA 2. Chronic systolic HF EF 20% - Stage C - s/p ACID 3. Obesity BMI 37 4. HTN crisis 5. Elevated troponins due to demand ischemia/Other issues per previous notes PLAN: Cont ASA / Statins Cont PT/OT Lovenox for DVT prophylaxis DC planning AM labs Review of Systems - Review of Systems Cardiovascular: negative: chest pain, palpitations, orthopnea, paroxysmal nocturnal dyspnea, edema, light headedness, other Gastrointestinal: negative: Nausea, Vomiting, Abdominal Pain, Diarrhea, Constipation, Melena, Hematochezia, Other - Medications/Allergies Allergies/Adverse Reactions: Allergies Allergy/AdvReac Type Severity Reaction Status Date / Time Penicillins Allergy Verified 03/04/18 00:08 Medications: Current Medications Acetaminophen (Tylenol) 650 mg PO Q4H PRN PRN Reason: Headache/Fever/Mild Pain (1-3) Last Admin: 03/04/18 02:23 Dose: 650 mg Apixaban (Eliquis) 5 mg PO BID [facility] Aspirin (Ecotrin) 325 mg PO DAILY [facility] Last Admin: 03/07/18 10:15 Dose: 325 mg Atorvastatin Calcium (Lipitor) 40 mg PO HS [facility] Last Admin: 03/06/18 21:11 Dose: 40 mg Carvedilol (Coreg) 3.125 mg PO BID-[facility] Last Admin: 03/07/18 10:16 Dose: 3.125 mg Clonidine (Catapres) 0.1 mg PO Q4H PRN PRN Reason: Systolic BP > 180 Enoxaparin Sodium (Lovenox) 40 mg SC 0900 [facility] Stop: 03/14/18 12:00 Last Admin: 03/07/18 10:16 Dose: 40 mg Famotidine (Pepcid) 20 mg PO BID [facility] Last Admin: 03/07/18 10:15 Dose: 20 mg Furosemide (Lasix) 20 mg PO DAILY [facility] Last Admin: 03/07/18 10:15 Dose: 20 mg Furosemide (Lasix) 20 mg PO NOW [facility] Stop: 03/07/18 17:45 Last Admin: 03/07/18 15:43 Dose: 20 mg Hydralazine HCl (Apresoline) 10 mg SLOW IVP Q4H PRN PRN Reason: SBP Greater Than 180 Labetalol HCl (Normodyne) 10 mg SLOW IVP Q2H PRN PRN Reason: SBP > 180 or DBP > 105 Last Admin: 03/04/18 09:51 Dose: 10 mg Lisinopril (Zestril) 5 mg PO DAILY [facility] Lisinopril (Zestril) 2.5 mg PO NOW [facility] Stop: 03/07/18 17:45 Last Admin: 03/07/18 15:42 Dose: 2.5 mg Lorazepam (Ativan) 1 mg SLOW IVP Q4H PRN PRN Reason: Anxiety/Agitation Last Admin: 03/05/18 21:36 Dose: 1 mg Lorazepam (Ativan) 1 mg PO HSPRN PRN PRN Reason: Anxiety Last Admin: 03/06/18 22:18 Dose: 1 mg Nicotine (Nicoderm Patch) 21 mg TOP Q24HR [facility] Ondansetron HCl (Zofran Odt) 4 mg PO Q6H PRN PRN Reason: Nausea/Vomiting Ondansetron HCl (Zofran) 4 mg IVP Q6H PRN PRN Reason: Nausea/Vomiting Sodium Chloride (Flush - Normal Saline) 10 ml IVF PRN PRN PRN Reason: Saline Flush Last Admin: 03/05/18 01:05 Dose: 10 ml Spironolactone (Aldactone) 25 mg PO DAILY [facility] Last Admin: 03/07/18 10:15 Dose: 25 mg
[2018-03-07] MEDS: Nicotine 21 MG PATCH TOP SCH ×2 (20:16→22:03)
[2018-03-07] MEDS: Atorvastatin Calcium 40 MG TAB PO SCH (20:16)
[2018-03-07] MEDS: Lorazepam 1 MG TAB PO PRN (22:13)
[2018-03-08 05:03] LABS: #Basophils 0.1 thou/uL (0.0-0.2); #Eosinphils 0.3 thou/uL (0.0-0.7); #Lymphocytes 2.7 thou/uL (1.20-3.40); #Monocytes 1.2 thou/uL (0.11-0.59); #Neutrophils 8.3 thou/uL (1.40-6.50); %Basophils 0.4 % (0.0-1.0); %Eosinophils 2.3 % (0.0-10.0); %Lymphocytes 21.6 % (21.0-51.0); %Monocytes 9.7 % (0.0-10.0); Hemoglobin 16.2 g/dL (14.0-18.0); Mean Corpuscular HGB CONC 33.3 g/dL (32.0-36.0); Mean Corpuscular Hemoglobin 29.4 pg (27.0-31.0); Mean Corpuscular Volume 88.1 fL (78.0-98.0); Mean Platelet Volume 9.3 fL (7.4-10.4); Platelet Count 212 thou/uL (130-400); RBC Distribution Width 12.4 % (11.5-14.5); Red Blood Cell (RBC) Count 5.51 mill/uL (4.70-6.10); White Blood Cell (WBC) Count 12.5 thou/uL (4.8-10.8)
[2018-03-08 05:21] LABS: Anion Gap 14 mmol/L (10-20); BUN (Urea Nitrogen) 23 mg/dL (8.9-20.6); Calc. Creatinine Clearance 159 mL/min (70-130); Calcium 9.4 mg/dL (7.8-10.44); Carbon Dioxide 19 mmol/L (22-29); Chloride 105 mmol/L (98-107); Estimated GFR-MDRD 84; Glucose 84 mg/dL (70-105); Potassium 3.9 mmol/L (3.5-5.1); Sodium 134 mmol/L (136-145)
[2018-03-08] MEDS: Spironolactone 25 MG TAB PO SCH (08:33)
[2018-03-08] MEDS: Lisinopril 5 MG TAB PO SCH (08:33)
[2018-03-08] MEDS: Famotidine 20 MG TAB PO SCH ×2 (08:35→22:30)
[2018-03-08] MEDS: Furosemide 20 MG TAB PO SCH (08:35)
[2018-03-08] MEDS: Carvedilol 3.125 MG TAB PO SCH ×2 (08:36→17:32)
[2018-03-08] MEDS: Aspirin 325 mg Enteric Coated Tablet PO SCH (08:36)
[2018-03-08] MEDS: Enoxaparin Sodium 40 MG/0.4 ML SYRINGE SC SCH (08:36)
[2018-03-08 17:04] LABS: Troponin I 0.013 ng/mL (< 0.028)
--- NOTE | 2018-03-08 17:20 | EKG ---
Test Reason : Blood Pressure : / mmHG Vent. Rate : 077 BPM Atrial Rate : 077 BPM P-R Int : 172 ms QRS Dur : 110 ms QT Int : 402 ms P-R-T Axes : 052 -04 243 degrees QTc Int : 454 ms Normal sinus rhythm Minimal voltage criteria for LVH, may be normal variant Abnormal ECG When compared with ECG of 03-MAR-2018 20:05, (Unconfirmed) T wave inversion now evident in Inferior leads T wave inversion more evident in Lateral leads Confirmed by YULIYA LUTHRE, DR. Grijalva ([id number]) on 03/08/2018 5:20:03 PM Referred By: ANA Confirmed By:DR. Rudi DWYER MD
--- NOTE | 2018-03-08 19:59 | PDOC.PN ---
- Subjective Encounter Start Date: 03/08/18 Encounter Start Time: 14:00 Patient seen and examined for Acute CVA. Rt leg remains weak. No other focal deficits. Intermittent CP. No other complaints. No overnight events - Objective Resuscitation Status - Order Detail: 03/08/18 12:13 Resuscitation Status Routine Resuscitation Status: FULL: Full Resuscitation Discussed with: Per previous orders MAR Reviewed: Yes Vital Signs & Weight: Vital Signs (12 hours) Temp Pulse Pulse Pulse Resp BP BP 03/08/18 15:41 98.5 F 80 16 03/08/18 15:20 81 79 145/92 H 132/74 03/08/18 12:00 98.3 F 79 16 03/08/18 10:51 88 82 134/79 127/82 03/08/18 08:33 68 03/08/18 08:15 03/08/18 08:00 97.5 F L 75 20 BP Pulse Ox 03/08/18 15:41 132/74 96 03/08/18 15:20 03/08/18 12:00 118/73 94 L 03/08/18 10:51 03/08/18 08:33 03/08/18 08:15 94 L 03/08/18 08:00 121/78 94 L Weight Weight 241 lb 9.6 oz Most Recent Monitor Data Heart Rate from ECG 78 NIBP 143/86 NIBP BP-Mean 102 Respiration from ECG 21 SpO2 96 I&O: 03/07/18 03/08/18 03/09/18 06:59 06:59 06:59 Intake Total 500 340 480 Output Total 500 1225 725 Balance 0 -885 -245 Result Diagrams: 03/08/18 04:46 03/08/18 04:46 EKG Reviewed by me: Yes (Tele SR) Phys Exam - Physical Examination Constitutional: NAD Respiratory: no wheezing, no rhonchi Cardiovascular: RRR, no rub Gastrointestinal: soft, non-tender, positive bowel sounds Musculoskeletal: no edema Neurological: moves all 4 limbs (except RLE.) No new focal findings. Dx/Plan - Plan DVT proph w/lovenox, DVT proph w/SCDs 1. Acute CVA with Rt hemiparesis s/p TPA 2. Chronic systolic HF EF 20% - Stage C - s/p ACID 3. Obesity BMI 37 4. HTN crisis 5. Elevated troponins due to demand ischemia/Other issues per previous notes PLAN: Cont ASA / Statins - Start Eliquis 2 weeks after TPA Cont PT/OT Lovenox for DVT prophylaxis DC planning in progress Troponins negative Review of Systems - Review of Systems Respiratory: negative: Cough, Dry, Shortness of Breath, Hemoptysis, SOB with Excertion, Pleuritic Pain, Sputum, Wheezing Cardiovascular: negative: chest pain, palpitations, orthopnea, paroxysmal nocturnal dyspnea, edema, light headedness, other - Medications/Allergies Allergies/Adverse Reactions: Allergies Allergy/AdvReac Type Severity Reaction Status Date / Time Penicillins Allergy Verified 03/04/18 00:08 Medications: Current Medications Acetaminophen (Tylenol) 650 mg PO Q4H PRN PRN Reason: Headache/Fever/Mild Pain (1-3) Last Admin: 03/04/18 02:23 Dose: 650 mg Apixaban (Eliquis) 5 mg PO BID [facility] Aspirin (Ecotrin) 325 mg PO DAILY [facility] Last Admin: 03/08/18 08:36 Dose: 325 mg Atorvastatin Calcium (Lipitor) 40 mg PO HS [facility] Last Admin: 03/07/18 20:16 Dose: 40 mg Carvedilol (Coreg) 3.125 mg PO BID-[facility] Last Admin: 03/08/18 17:32 Dose: 3.125 mg Clonidine (Catapres) 0.1 mg PO Q4H PRN PRN Reason: Systolic BP > 180 Enoxaparin Sodium (Lovenox) 40 mg SC 0900 [facility] Stop: 03/14/18 12:00 Last Admin: 03/08/18 08:36 Dose: 40 mg Famotidine (Pepcid) 20 mg PO BID [facility] Last Admin: 03/08/18 08:35 Dose: 20 mg Furosemide (Lasix) 20 mg PO DAILY [facility] Last Admin: 03/08/18 08:35 Dose: 20 mg Hydralazine HCl (Apresoline) 10 mg SLOW IVP Q4H PRN PRN Reason: SBP Greater Than 180 Labetalol HCl (Normodyne) 10 mg SLOW IVP Q2H PRN PRN Reason: SBP > 180 or DBP > 105 Last Admin: 03/04/18 09:51 Dose: 10 mg Lisinopril (Zestril) 5 mg PO DAILY [facility] Last Admin: 03/08/18 08:33 Dose: 5 mg Lorazepam (Ativan) 1 mg SLOW IVP Q4H PRN PRN Reason: Anxiety/Agitation Last Admin: 03/05/18 21:36 Dose: 1 mg Lorazepam (Ativan) 1 mg PO HSPRN PRN PRN Reason: Anxiety Last Admin: 03/07/18 22:13 Dose: 1 mg Nicotine (Nicoderm Patch) 21 mg TOP Q24HR [facility] Last Admin: 03/07/18 22:03 Dose: 21 mg Ondansetron HCl (Zofran Odt) 4 mg PO Q6H PRN PRN Reason: Nausea/Vomiting Ondansetron HCl (Zofran) 4 mg IVP Q6H PRN PRN Reason: Nausea/Vomiting Sodium Chloride (Flush - Normal Saline) 10 ml IVF PRN PRN PRN Reason: Saline Flush Last Admin: 03/05/18 01:05 Dose: 10 ml Spironolactone (Aldactone) 25 mg PO DAILY [facility] Last Admin: 03/08/18 08:33 Dose: 25 mg
[2018-03-08] MEDS: Nicotine 21 MG PATCH TOP SCH (22:30)
[2018-03-08] MEDS: Atorvastatin Calcium 40 MG TAB PO SCH (22:30)
[2018-03-09] MEDS: Enoxaparin Sodium 40 MG/0.4 ML SYRINGE SC SCH (11:04)
[2018-03-09] MEDS: Spironolactone 25 MG TAB PO SCH (11:04)
[2018-03-09] MEDS: Lisinopril 5 MG TAB PO SCH (11:04)
[2018-03-09] MEDS: Furosemide 20 MG TAB PO SCH (11:07)
[2018-03-09] MEDS: Famotidine 20 MG TAB PO SCH ×2 (11:07→21:45)
[2018-03-09] MEDS: Carvedilol 3.125 MG TAB PO SCH ×2 (11:07→18:36)
[2018-03-09] MEDS: Aspirin 325 mg Enteric Coated Tablet PO SCH (11:08)
--- NOTE | 2018-03-09 12:46 | PDOC.PN ---
- Subjective Encounter Start Date: 03/09/18 Encounter Start Time: 09:30 Patient seen and examined for Acute CVA. No new focal deficits. No CP/SOB. No other complaints. No overnight events - Objective Resuscitation Status - Order Detail: 03/08/18 12:13 Resuscitation Status Routine Resuscitation Status: FULL: Full Resuscitation Discussed with: Per previous orders MAR Reviewed: Yes Vital Signs & Weight: Vital Signs (12 hours) Temp Pulse Pulse Pulse Resp BP BP 03/09/18 11:38 98.3 F 85 18 03/09/18 11:04 79 117/71 03/09/18 09:24 86 87 142/89 H 03/09/18 08:00 97.4 F L 73 16 03/09/18 04:00 97.5 F L 77 13 BP BP BP Pulse Ox 03/09/18 11:38 121/79 96 03/09/18 11:04 03/09/18 09:24 126/78 03/09/18 08:00 127/75 98 03/09/18 04:00 105/69 98 Weight Weight 241 lb 9.6 oz Most Recent Monitor Data Heart Rate from ECG 78 NIBP 143/86 NIBP BP-Mean 102 Respiration from ECG 21 SpO2 96 I&O: 03/08/18 03/09/18 03/10/18 06:59 06:59 06:59 Intake Total 340 480 Output Total 1225 725 Balance -885 -245 Result Diagrams: 03/08/18 04:46 03/08/18 04:46 EKG Reviewed by me: Yes (Tele SR) Phys Exam - Physical Examination Constitutional: NAD Respiratory: no wheezing, no rhonchi Cardiovascular: RRR Gastrointestinal: soft, non-tender, positive bowel sounds Musculoskeletal: no edema Neurological: moves all 4 limbs (except RLE) Dx/Plan - Plan DVT proph w/SCDs 1. Acute CVA with Rt hemiparesis s/p TPA 2. Chronic systolic HF EF 20% - Stage C - s/p ACID 3. Obesity BMI 37 4. HTN crisis - improved 5. Elevated troponins due to demand ischemia/Other issues per previous notes PLAN: Cont ASA / Statins Will start Eliquis 2 weeks after TPA Cont PT/OT Lovenox for DVT prophylaxis DC planning in progress Stable for dc Review of Systems - Review of Systems Respiratory: negative: Cough, Dry, Shortness of Breath, Hemoptysis, SOB with Excertion, Pleuritic Pain, Sputum, Wheezing Cardiovascular: negative: chest pain, palpitations, orthopnea, paroxysmal nocturnal dyspnea, edema, light headedness, other - Medications/Allergies Allergies/Adverse Reactions: Allergies Allergy/AdvReac Type Severity Reaction Status Date / Time Penicillins Allergy Verified 03/04/18 00:08 Medications: Current Medications Acetaminophen (Tylenol) 650 mg PO Q4H PRN PRN Reason: Headache/Fever/Mild Pain (1-3) Last Admin: 03/04/18 02:23 Dose: 650 mg Apixaban (Eliquis) 5 mg PO BID [facility] Aspirin (Ecotrin) 325 mg PO DAILY [facility] Last Admin: 03/09/18 11:08 Dose: 325 mg Atorvastatin Calcium (Lipitor) 40 mg PO [facility] Last Admin: 03/08/18 22:30 Dose: 40 mg Carvedilol (Coreg) 3.125 mg PO BID-[facility] Last Admin: 03/09/18 11:07 Dose: 3.125 mg Clonidine (Catapres) 0.1 mg PO Q4H PRN PRN Reason: Systolic BP > 180 Enoxaparin Sodium (Lovenox) 40 mg SC 0900 [facility] Stop: 03/14/18 12:00 Last Admin: 03/09/18 11:04 Dose: 40 mg Famotidine (Pepcid) 20 mg PO BID [facility] Last Admin: 03/09/18 11:07 Dose: 20 mg Furosemide (Lasix) 20 mg PO DAILY [facility] Last Admin: 03/09/18 11:07 Dose: 20 mg Hydralazine HCl (Apresoline) 10 mg SLOW IVP Q4H PRN PRN Reason: SBP Greater Than 180 Labetalol HCl (Normodyne) 10 mg SLOW IVP Q2H PRN PRN Reason: SBP > 180 or DBP > 105 Last Admin: 03/04/18 09:51 Dose: 10 mg Lisinopril (Zestril) 5 mg PO DAILY [facility] Last Admin: 03/09/18 11:04 Dose: 5 mg Lorazepam (Ativan) 1 mg SLOW IVP Q4H PRN PRN Reason: Anxiety/Agitation Last Admin: 03/05/18 21:36 Dose: 1 mg Lorazepam (Ativan) 1 mg PO HSPRN PRN PRN Reason: Anxiety Last Admin: 03/07/18 22:13 Dose: 1 mg Nicotine (Nicoderm Patch) 21 mg TOP Q24HR [facility] Last Admin: 03/08/18 22:30 Dose: 21 mg Ondansetron HCl (Zofran Odt) 4 mg PO Q6H PRN PRN Reason: Nausea/Vomiting Ondansetron HCl (Zofran) 4 mg IVP Q6H PRN PRN Reason: Nausea/Vomiting Sodium Chloride (Flush - Normal Saline) 10 ml IVF PRN PRN PRN Reason: Saline Flush Last Admin: 03/05/18 01:05 Dose: 10 ml Spironolactone (Aldactone) 25 mg PO DAILY [facility] Last Admin: 03/09/18 11:04 Dose: 25 mg
[2018-03-09] MEDS: Nicotine 21 MG PATCH TOP SCH (21:45)
[2018-03-09] MEDS: Atorvastatin Calcium 40 MG TAB PO SCH (21:45)
[2018-03-10 07:32] VITALS: BP 118/71; TEMP 98.3
[2018-03-10] MEDS: Carvedilol 3.125 MG TAB PO SCH (09:00)
[2018-03-10] MEDS: Furosemide 20 MG TAB PO SCH (09:00)
[2018-03-10] MEDS: Aspirin 325 mg Enteric Coated Tablet PO SCH (09:00)
[2018-03-10] MEDS: Spironolactone 25 MG TAB PO SCH (09:01)
[2018-03-10] MEDS: Famotidine 20 MG TAB PO SCH (09:01)
[2018-03-10] MEDS: Lisinopril 5 MG TAB PO SCH (09:01)
[2018-03-10] MEDS: Enoxaparin Sodium 40 MG/0.4 ML SYRINGE SC SCH (09:01)
--- NOTE | 2018-03-10 12:49 | DIS ---
DATE OF ADMISSION: 03/03/2018 DATE OF DISCHARGE: 03/10/2018 DISCHARGE DISPOSITION: Home. ALLERGIES: THE PATIENT IS ALLERGIC TO PENICILLIN. DISCHARGE MEDICATIONS: 1. Eliquis 5 mg twice a day to be started on March 15. 2. Aspirin 325 mg daily, aspirin needs to be changed to 81 mg daily on March 15. 3. Lipitor 40 mg at bedtime. 4. Carvedilol 3.125 mg b.i.d. 5. Lasix 20 mg daily. 6. Lisinopril 5 mg daily. 7. Aldactone 25 mg daily. The patient was seen on the day of discharge. Denies any new complaints. No chest pain, shortness of breath, or palpitations. No new focal deficit appreciated. Continues to have right lower extremity weakness. BRIEF HOSPITAL COURSE: The patient is a 37-year-old male with chronic systolic heart failure, ejection fraction 20% range, status post AICD, and hypertension, presented to the emergency room on March 03, 2018 with right-sided weakness along with chest discomfort. Please refer to the history and physical dated March 03, [address] Brooks for further details. The patient was admitted to the intensive care unit with diagnosis of acute CVA. He received tPA. He was also placed on Cardene drip. Initial CT scan of the brain was negative for acute CVA. Echocardiogram showed left ventricular ejection fraction 20% to 25% with grade 1/3 diastolic dysfunction. There was no thrombus seen in the left ventricle. He was seen by Neurology, Dr. Epsp; Critical Care, Dr. García; and Cardiology, Dr. Sandy. He will be started on full anticoagulation 2 weeks after the acute CVA. He requested to be discharged to home. He is able to ambulate with walker. Inpatient rehabilitation was recommended; however, the patient declined due to financial reason. DIAGNOSTIC LABORATORY DATA: Maximum troponin 0.033. FINAL DIAGNOSES: 1. Acute cerebrovascular accident with right hemiparesis, status post tPA. Please note that MRI was not done due to automatic implantable cardioverter-defibrillator. 2. Chronic systolic heart failure, ejection fraction 20% range, status post automatic implantable cardioverter-defibrillator. 3. Non-ischemic cardiomyopathy. 4. Obesity with BMI 37. 5. Hypertensive crisis, requiring Cardene drip. 6. Elevated troponin, secondary to demand ischemia. 7. Mild intermittent asthma. 8. Depression without any suicidal ideation. 9. Tobacco dependence. 10. History of drug abuse in the past. 11. Family history of heart disease. 12. Chronic kidney disease, stage 2. Plan of care was discussed with the patient in detail. He stated understanding. Risk not limited to life threatening bleeding with anticoagulation was discussed with the patient, he stated understanding. Job ID: [id number]
--- NOTE | 2018-03-12 16:05 | EKG ---
Test Reason : Blood Pressure : / mmHG Vent. Rate : 082 BPM Atrial Rate : 082 BPM P-R Int : 168 ms QRS Dur : 102 ms QT Int : 378 ms P-R-T Axes : 049 -14 115 degrees QTc Int : 441 ms Normal sinus rhythm Left ventricular hypertrophy with repolarization abnormality Abnormal ECG Confirmed by LOUISE CANTU ([id number]), international editorial producer KAYLA HOWARD ([id number]) on 03/12/2018 4:05:18 PM Referred By: Confirmed By:LOUISE CANTU
[2018-03-14] MEDS ORDERED: Apixaban 5 MG TAB PO SCH (21:00)
== END 2018-03-10 11:41 | disposition home or self-care (01) | DRG 62 ==
LOC: ERS 20:01 → CCU 22:18 → 2SE 03-05 10:27
PROVIDERS: ADMIT Internal Medicine; ATTEND Internal Medicine
DX: I63.9 Cerebral infarction, unspecified (principal); G81.91 Hemiplegia, unspecified affecting right dominant side; I13.0 Hypertensive heart and chronic kidney disease with heart failure and stage 1 through stage 4 chronic kidney disease, or unspecified chronic kidney disease; I50.22 Chronic systolic (congestive) heart failure; I42.0 Dilated cardiomyopathy; I16.9 Hypertensive crisis, unspecified; I24.8 Other forms of acute ischemic heart disease; N18.2 Chronic kidney disease, stage 2 (mild); E66.9 Obesity, unspecified; Z68.37 Body mass index [BMI] 37.0-37.9, adult; J45.20 Mild intermittent asthma, uncomplicated; F32.9 Major depressive disorder, single episode, unspecified; F17.210 Nicotine dependence, cigarettes, uncomplicated; E78.5 Hyperlipidemia, unspecified; Z88.0 Allergy status to penicillin; Z82.49 Family history of ischemic heart disease and other diseases of the circulatory system; Z79.899 Other long term (current) drug therapy; Z91.19 Patient's noncompliance with other medical treatment and regimen; Z95.810 Presence of automatic (implantable) cardiac defibrillator
CPT/HCPCS: 36415; 36416; 70450; 70496; 70498; 71045; 71275; 80048; 80053; 80061; 80307; 82553; 83690; 83735; 83880; 84484; 85025; 85610; 85730; 86850; 86900; 86901; 90471; 90686; 93005; 93010; 93306; 96374; G0008; G8978-GP-CN; G8979-GP-CL; G8987-GO-CJ; G8988-GO-CI; G8996-GN-CI; G8997-GN-CH; J0360; J1650; J2060; J2997; J7050; S0028

== ENCOUNTER 2020-05-21 16:36 | Inpatient (IN) | payer OTHER, SELFPAY ==
[2020-05-21] MEDS ORDERED: HYDROcodone/Acetaminophen 10/325 mg Tablet ONE (16:59)
--- NOTE | 2020-05-21 17:25 | RAD ---
4 views left knee: 05/21/2020 COMPARISON: None available HISTORY: Injury, trauma, pain FINDINGS: There is a comminuted fracture involving the proximal left tibia. This includes a comminute d and depressed multifocal lateral tibial plateau fracture. There is evidence of a lipohemarthrosis. No evidence for dislocation is seen. IMPRESSION: Comminuted proximal left tibial fracture/lateral tibial plateau fracture. Orthopedic cons ultation advised. If further imaging is clinically warranted, a CT examination of the left knee could best define the extent of proximal left tibial fracture deformity.
--- NOTE | 2020-05-21 17:54 | RAD ---
CHEST ONE VIEW: 05/21/20 HISTORY: Preop evaluation. COMPARISON: Radiograph 03/03/18. FINDINGS: Heart size is enlarged. No pneumothorax. No effusion. Dual lead AICD/pacer electrode tip projects at the right atrial appendage and right ventricle. No acute osseous abnormality. IMPRESSION: No acute intrathoracic abnormality. POS: HOME
[2020-05-21 17:55] LABS: #Basophils 0.1 thou/uL (0.0-0.2); #Eosinphils 0.2 thou/uL (0.0-0.7); #Lymphocytes 2.7 thou/uL (1.20-3.40); #Monocytes 1.7 thou/uL (0.11-0.59); #Neutrophils 14.1 thou/uL (1.40-6.50); %Basophils 0.5 % (0.0-1.0); %Eosinophils 0.9 % (0.0-10.0); %Lymphocytes 14.3 % (21.0-51.0); %Monocytes 9.2 % (0.0-10.0); %Neutrophils 75.1 % (42.0-75.0); Hemoglobin 16.3 g/dL (14.0-18.0); Mean Corpuscular HGB CONC 34.1 g/dL (32.0-36.0); Mean Corpuscular Hemoglobin 30.9 pg (27.0-31.0); Mean Corpuscular Volume 90.6 fL (78.0-98.0); Mean Platelet Volume 9.3 fL (7.4-10.4); Platelet Count 214 thou/uL (130-400); RBC Distribution Width 12.7 % (11.5-14.5); Red Blood Cell (RBC) Count 5.26 mill/uL (4.70-6.10); White Blood Cell (WBC) Count 18.8 thou/uL (4.8-10.8)
[2020-05-21 18:01] LABS: INR-International Normal Ratio 0.9; PTT 24.1 sec (22.9-36.1); Prothrombin Time 12.8 sec (12.0-14.7)
[2020-05-21] MEDS ORDERED: Dextrose 5% in Water 1,000 ML IV PRN (18:10)
[2020-05-21] MEDS ORDERED: Dextrose 50% Abboject 50 ML SYRINGE SLOW IVP PRN (18:10)
[2020-05-21] MEDS ORDERED: Ondansetron PF 4 MG/2 ML Vial IVP PRN (18:10)
[2020-05-21] MEDS ORDERED: traMADol HCl 50 MG TAB PO PRN (18:12)
[2020-05-21 18:16] LABS: ALT (SGPT) 28 U/L (8-55); AST (SGOT) 30 U/L (5-34); Albumin 4.5 g/dL (3.5-5.0); Alkaline Phosphatase 68 U/L (40-110); Anion Gap 13 mmol/L (10-20); BUN (Urea Nitrogen) 24 mg/dL (8.9-20.6); Bilirubin, Total 0.7 mg/dL (0.2-1.2); Calc. Creatinine Clearance 0 mL/min (70-130); Calcium 9.2 mg/dL (7.8-10.44); Carbon Dioxide 21 mmol/L (22-29); Chloride 106 mmol/L (98-107); Globulin 3.8 g/dL (2.4-3.5); Glucose 99 mg/dL (70-105); Potassium 3.9 mmol/L (3.5-5.1); Protein, Total 8.3 g/dL (6.0-8.3); Sodium 136 mmol/L (136-145)
[2020-05-21] MEDS ORDERED: Morphine 4 MG/ML VIAL ONE (18:23)
[2020-05-21 18:56] LABS: Magnesium 2.3 mg/dL (1.6-2.6); Phosphorus 2.4 mg/dL (2.3-4.7)
--- NOTE | 2020-05-21 19:20 | HP ---
TRAUMA SURGEON: Dr. Law. CONSULTING PHYSICIAN: Dr. Cerda. HISTORY OF PRESENT ILLNESS: The patient is a 39-year-old male who presented to the emergency department after a mechanical fall from a porch that was about 1 to 2 feet tall. The patient reports landing with all his weight on his left upper extremity. He did fall to the ground, but it was a controlled fall. He denies hitting his head or loss of consciousness. He reports taking 81 mg of aspirin daily. He denies nausea, vomiting, cough, shortness of breath, or chest pain. The patient reports he can walk about 50 feet after becoming short of breath and having to stop. He said this is slightly improved from the last three months, where he could only walk about 20 feet. The patient reports that he cannot lay flat due to shortness of breath and then he uses a few pillows to raise the head in order to sleep. He does not use any oxygen at home and has a history of congestive heart failure. He also has a history of meth use. He has had an AICD/pacemaker for the past 12 years and has not followed up with Cardiology in quite some time. He was incarcerated and only recently was released. While he was in long term, he did receive medical care and currently takes medications such as aspirin, metoprolol, lisinopril, and Lasix. He reports he does not take any anticoagulation at this time. Reports that he has previously seen Dr. Taylor. Upon evaluation, it appears that he has also been seen by Dr. Sandy a few years ago before going to long term. REVIEW OF SYSTEMS: All additional 10-point review of systems negative except as indicated above. PAST MEDICAL HISTORY: Ischemic cardiomyopathy, chronic congestive heart failure, hypertension, AICD/pacemaker, and hypertension. PAST SURGICAL HISTORY: AICD/pacemaker placement and left wrist surgery. SOCIAL HISTORY: The patient lives with his grandmother. 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 He reports smoking about half a pack of cigarettes per day. He denies alcohol use. He has a history of meth use, most recent was about two days ago. MEDICATIONS: 1. Metoprolol. 2. Aspirin. 3. Lasix. 4. Lisinopril. The patient cannot remember the rest of his medications right now. ALLERGIES: PENICILLIN. PHYSICAL EXAMINATION: VITAL SIGNS: Temperature 98.7, pulse 119, respirations 16, oxygen saturation 98% on room air, and blood pressure 177/103. PRIMARY SURVEY: Airway intact. Adequate breath sounds bilaterally. 2+ pulses in bilateral radials, femorals, and DPs. GCS 15. Gross motor and sensation are intact. No lacerations, bruising, or external bleeding. The patient has a knee immobilizer to the left lower extremity. SECONDARY SURVEY: HEAD: Normocephalic and atraumatic. No gross palpable skull deformities or tenderness. EYES: Pupils 3-2, equal, round, reactive to light bilaterally. ENT: No signs of trauma. C-SPINE: No step-offs or deformities, nontender, C-collar not in place. CHEST: Nontender. No crepitus. No abrasions or ecchymosis noted. Equal chest movement. ABDOMEN: Soft, nontender, nondistended. PELVIS: Stable to palpation, nontender. No abrasions or ecchymosis noted. RECTAL: Deferred. GENITOURINARY: Deferred. EXTREMITIES: No gross deformities. No abrasions or ecchymosis noted. 2+ pulses in bilateral radials, femorals, and DPs. BACK/SPINE: No step-offs or deformities or tenderness to palpation of thoracic or lumbar spine. No abrasions or ecchymosis noted. NEUROLOGIC: 5/5 strength in bilateral dietetic technician registered, plantar flexion, dorsiflexion. Gross normal sensation x4 extremities. LABORATORY FINDINGS: White count 18.8, hemoglobin 16.3, hematocrit 47.7, platelets 214. INR 0.9, PTT 24.1. Sodium 136, potassium 3.9, chloride 106, bicarb 21, BUN 24, creatinine 1.02. Total bilirubin 0.7, AST 30, ALT 28, alkaline phosphatase 68. DIAGNOSTIC FINDINGS: X-ray of the left knee demonstrates comminuted proximal left tibial fracture/lateral tibial plateau fracture. Orthopedic consultation advised. If further imaging is clinically warranted, a CT examination of the left knee could be best defined the extent of the proximal left tibial fracture deformity. Chest x-ray demonstrates no acute intrathoracic abnormalities. ASSESSMENT: 1. Status post mechanical fall from porch. 2. Left tibial plateau fracture. 3. History of ischemic cardiomyopathy with automatic implantable cardioverter defibrillator/pacemaker, chronic congestive heart failure, hypertension. PLAN: The patient has been admitted to the Trauma Service. He will go to the regular surgical nursing floor. He will have a heart healthy diet and be n.p.o. at midnight. Dr. Cerda has evaluated the patient and plan is to take the patient to the OR tomorrow. There is a CT of the lower extremity pending. As the patient has not had any cardiac workup recently and can only walk 50 feet before becoming short of breath, we will complete an echo as well as a BNP, we will follow those up. If there is a concern for decompensated heart failure, we will consult Cardiology as appropriate. Postoperatively, the patient will likely be able to go home to his grandmother's home. This patient was discussed with Dr. Law before this dictation. Job ID: [id number]
--- NOTE | 2020-05-21 19:43 | CT ---
CT LEFT KNEE WITHOUT CONTRAST: 05/21/20 HISTORY: Pain. Possible fracture. COMPARISON: Left knee radiograph same day. FINDINGS: The femoral condyles are intact. A comminuted fracture of the medial and lateral tibial spines with a displaced cortical fragment from the posterior lateral tibial plateau within the anterior intercond ylar notch. There is a sagittal split of the lateral tibial plateau as well as a depressed articular surface tear which is impacted approximately 5 mm. There is also a coronal oblique fracture extending across both the medial and lateral tibial plateaus. The farthest fracture line from the joint space is the later al tibial plateau sagittal split fracture which extends 5.5 cm distal to the joint space. Fibular head and neck are intact. There is extensive intramuscular edema of the popliteus as well as the soleus. Large intermuscular hematoma between the left soleus and gastrocnemius muscles. Large lip ohemarthrosis. The patella itself is intact. IMPRESSION: Three column highly comminuted complex medial and lateral tibial plateau fracture with articular surf ashley decompress of the lateral tibial plateau up to 8 mm from a depth of 5 mm with the posterior tibia l plateau displaced in the anterior and chondroid notch. There are separate fracture fragments within the medial, lateral and posterior columns with fracture lines extending to the cortical surface of e ach column wall with a large posterior fragment in the coronal plane which may need posterior column stabilization. POS: HOME
[2020-05-21] MEDS: Senokot S 8.6-50 MG TAB PO SCH (21:16)
[2020-05-21] MEDS: Famotidine/PF 20 mg/2ml Vial SLOW IVP SCH (21:16)
[2020-05-21] MEDS: Ibuprofen 200 MG TAB PO SCH (21:16)
[2020-05-21] MEDS: Morphine 4 MG/ML VIAL SLOW IVP PRN (21:17)
[2020-05-21] MEDS: traMADol HCl 50 MG TAB PO PRN (22:25)
[2020-05-21] MEDS: Cyclobenzaprine 10 MG TAB PO PRN (22:25)
[2020-05-22] MEDS: Acetaminophen 500 MG TAB PO SCH ×5 (00:10→22:00)
[2020-05-22 02:05] VITALS: BMI 42.7
[2020-05-22] MEDS: Morphine 4 MG/ML VIAL SLOW IVP PRN ×2 (02:48→10:46)
[2020-05-22] MEDS: Ibuprofen 200 MG TAB PO SCH ×3 (05:28→22:00)
[2020-05-22] MEDS: traMADol HCl 50 MG TAB PO PRN (05:28)
[2020-05-22 05:34] LABS: #Eosinphils 0.3 thou/uL (0.0-0.7); #Monocytes 1.5 thou/uL (0.11-0.59); #Neutrophils 9.3 thou/uL (1.40-6.50); %Basophils 0.2 % (0.0-1.0); %Eosinophils 2.3 % (0.0-10.0); %Lymphocytes 21.1 % (21.0-51.0); %Monocytes 10.6 % (0.0-10.0); %Neutrophils 65.8 % (42.0-75.0); Hemoglobin 13.8 g/dL (14.0-18.0); Mean Corpuscular HGB CONC 31.6 g/dL (32.0-36.0); Mean Corpuscular Hemoglobin 28.9 pg (27.0-31.0); Mean Corpuscular Volume 91.5 fL (78.0-98.0); Mean Platelet Volume 9.6 fL (7.4-10.4); Platelet Count 180 thou/uL (130-400); RBC Distribution Width 12.7 % (11.5-14.5); Red Blood Cell (RBC) Count 4.79 mill/uL (4.70-6.10); White Blood Cell (WBC) Count 14.1 thou/uL (4.8-10.8)
[2020-05-22 05:54] LABS: Anion Gap 10 mmol/L (10-20); BUN (Urea Nitrogen) 23 mg/dL (8.9-20.6); Calc. Creatinine Clearance 174 mL/min (70-130); Calcium 8.5 mg/dL (7.8-10.44); Carbon Dioxide 27 mmol/L (22-29); Chloride 106 mmol/L (98-107); Glucose 115 mg/dL (70-105); Magnesium 2.2 mg/dL (1.6-2.6); Phosphorus 3.6 mg/dL (2.3-4.7); Potassium 3.9 mmol/L (3.5-5.1); Sodium 139 mmol/L (136-145)
[2020-05-22 06:37] LABS: SARS-CoV-2 PCR by NAA Not Detected (NotDetected)
[2020-05-22] MEDS: Famotidine/PF 20 mg/2ml Vial SLOW IVP SCH ×2 (07:56→20:33)
[2020-05-22] MEDS: Senokot S 8.6-50 MG TAB PO SCH ×2 (07:56→20:33)
[2020-05-22] MEDS: Polyethylene Glycol 3350 17 GM Packet PO SCH (07:56)
--- NOTE | 2020-05-22 08:38 | CON ---
DATE OF CONSULTATION: 05/22/2020 REQUESTING PHYSICIAN: Trauma Services. CONSULTING PHYSICIAN: Dr. Terrell Cerda. REASON FOR CONSULTATION: Left tibial plateau fracture. HISTORY OF PRESENT ILLNESS: This is a 39-year-old male who presented to our emergency department after a mechanical fall from a porch that was about 1-2 feet tall. He reports that he was sweeping his porch for his grandmother when he lost his balance, falling awkwardly and placing all his weight on his left lower extremity. He denied any head injury or loss of consciousness at the time of the fall. He was brought to our facility, where he was worked up and found to have a left tibial plateau fracture. Of note, the patient states he has been incarcerated for the last 2-1/2 years, released approximately 1 month ago. He does report a history of methamphetamine abuse. He also states that he has an AICD. This was last evaluated approximately a month ago before he is released from [facility]. The patient does not know what exams or tests were run at that time. Currently at bedside, the patient reports pain isolated to the left leg. Denies any numbness or tingling. Does state that he has an ankle monitor bracelet on this side. PAST MEDICAL HISTORY: Ischemic cardiomyopathy, congestive heart failure, hypertension, AICD/pacemaker, hypertension. PAST SURGICAL HISTORY: AICD pacemaker placement and left wrist surgery. SOCIAL HISTORY: Patient currently lives with his grandmother. He has not started working since his release from [facility]. He smokes about a half pack of cigarettes a day. Denies any alcohol use. Has a history of meth use, last meth use is unclear. Independent ambulator. ALLERGIES: TO PENICILLIN. FAMILY HISTORY: Reviewed and noncontributory. PHYSICAL EXAMINATION: VITAL SIGNS: Shows current vital signs including temperature of 97.9, pulse of 80, respiratory rate of 16, O2 saturation of 96% on room air, and blood pressure of 150/96. GENERAL: The patient is awake and alert. He is in no apparent distress. There is currently no family at bedside. He is pleasant and cooperative with exam at this time. HEENT: Head is normocephalic and atraumatic. NECK: Supple. Trachea midline. LUNGS: Breathing is nonlabored. EXTREMITIES: Evaluation of the left lower extremity shows a knee immobilizer intact. There is soft tissue swelling present at the knee. Skin appears intact. There is an ankle monitor bracelet present to his left ankle. This appears loose fitting at this time. He is able to plantar flex and dorsiflex at the ankle. He is able to move all his toes. Distal neurovascular status is intact. RADIOGRAPHIC IMAGING: Reviewed today including views of the patient's left knee demonstrate a depressed lateral tibial plateau fracture. There is some comminution present. IMPRESSION: Status post fall off a porch with a depressed left lateral tibial plateau fracture. PLAN: At this time, we will await Trauma Services recommendations per cardiac history and whether or not they will want any further cardiac workup. We have him tentatively posted today at 11 o'clock for open reduction and internal fixation of this left tibial plateau fracture in order to restore anatomic alignment and promote mobility. Risks, benefits, and alternatives of surgery discussed at length with the patient today. He verbalizes understanding and is amenable to this plan of care. We have requested per the patient and the nursing staff to contact his loans officer in order to have this ankle monitor device removed for surgery. We will get this set up for him. If Trauma requests further workup, we will postpone his surgery until tomorrow per the recommendation. Job ID: [id number]
[2020-05-22] MEDS ORDERED: Ketorolac Tromethamine 30 MG/ML VIAL ONE (09:01)
[2020-05-22] MEDS ORDERED: Glycopyrrolate 0.2 MG/ML 5 ML SYRINGE ONE (09:01)
[2020-05-22] MEDS ORDERED: Lidocaine 1% PF 5 ML VIAL ONE (09:01)
[2020-05-22] MEDS ORDERED: Dexamethasone 20 MG/5 ML VIAL ONE (09:01)
[2020-05-22] MEDS ORDERED: Ondansetron PF 4 MG/2 ML Vial ONE (09:01)
[2020-05-22] MEDS ORDERED: Rocuronium Bromide 10 MG/ML (10ML VIAL) ONE (09:01)
[2020-05-22] MEDS ORDERED: Metoprolol Tartrate 100 MG TAB PO SCH (10:00)
[2020-05-22] MEDS ORDERED: Lisinopril 10 MG TAB PO SCH ×2 (11:15→21:00)
--- NOTE | 2020-05-22 11:43 | CON ---
DATE OF CONSULTATION: 05/22/2020 REASON FOR CONSULTATION: Preoperative evaluation, history of cardiomyopathy. PRIMARY TELEVISION WRITER: It appears that the most recent evaluation was done by Dr. Sandy. HISTORY OF PRESENT ILLNESS: Mr. Shafer is a 39-year-old gentleman who with a lower extremity fracture needs repair. He initially presented from a cardiac standpoint with symptoms of congestive heart failure and underwent cardiac catheterization in 2014. Dr. Lazar did the catheterization. He had normal coronary arteries with severely depressed left ventricular function. The patient has been on beta blockers and JESSEE inhibitors. He has been incarcerated for 3-1/2 years, but he said he has been out at home now. He says he is taking metoprolol and lisinopril. He is not certain of the doses. He also takes furosemide. He has not been having chest pain or shortness of breath. His blood pressure has been elevated. Otherwise, the patient has been doing fairly well until he had this leg fracture. ALLERGIES: TO PENICILLIN. REVIEW OF SYSTEMS: CONSTITUTIONAL: No significant weight gain or loss. VISION: No changes. HEARING: No changes. PULMONARY: No cough or wheezing. GASTROINTESTINAL: No nausea, vomiting, or diarrhea. SKIN: No rashes. NEUROLOGIC: No unilateral weakness or numbness. PSYCHIATRIC: No unusual depression or anxiety. PHYSICAL EXAMINATION: GENERAL: This is a pleasant 39-year-old man, in no distress. VITAL SIGNS: Blood pressure 162/90 and pulse 90. LUNGS: Clear. CARDIAC: Normal S1 and normal S2. ABDOMEN: Soft and nontender. He is obese. EXTREMITIES: No clubbing or cyanosis. There is no edema. He has good peripheral pulses. PERTINENT LABORATORY DATA: The chest x-ray does not show pulmonary vascular congestion. The BNP was less than 10. Creatinine is 1.02 and potassium is 3.9. Echocardiogram showed ejection fraction of 25% to 30%. Pacemaker is interrogated and is functioning normally. There is still 4 years of battery left. There are no arrhythmias. ASSESSMENT: 1. Idiopathic dilated cardiomyopathy, stable. 2. Hypertension. 3. Leg fracture. PLAN: Proceed to surgery as planned. The patient should be relatively low risk for major complications. I think it can occur in patients with depressed ejection fraction and volume overload. Therefore, if he needs quite a bit of fluid, may need some Lasix postoperatively. We will follow with you during this hospitalization. Job ID: [id number]
[2020-05-22] MEDS ORDERED: Midazolam HCl 2 mg/2 ml Vial ONE (12:26)
[2020-05-22] MEDS ORDERED: Fentanyl 100 MCG/2 ML VIAL ONE ×3 (12:26→15:03)
[2020-05-22] MEDS ORDERED: Lidocaine 2% Jelly 5 ML TUBE ONE (12:44)
--- NOTE | 2020-05-22 12:47 | PRG ---
DATE OF SERVICE: 05/22/2020 SUBJECTIVE: The patient was seen at bedside, sitting up this morning. States that his pain is well controlled at this time. States that he has no questions or concerns at this time. OBJECTIVE: VITAL SIGNS: Blood pressure 150/96, pulse is 80, respirations 16, temperature 97.9, and O2 saturation 96% on room air. GENERAL: No acute distress. Well appearing. GCS 15. HEART: Regular rate and rhythm. LUNGS: Clear to auscultation bilaterally. ABDOMEN: Soft, nontender. No distention noted. ASSESSMENT: 1. Status post mechanical fall 2. Status post left tibial plateau fracture 3. Ischemic cardiomyopathy 4. Congestive Heart Failure with AICD 5. Hypertension PLAN: The patient is a 39-year-old male, who sustained a left tibial plateau fracture. Current plan is for the patient to go to OR this afternoon with Orthopedics. Due to the patient's congestive heart failure with AICD, ischemic cardiomyopathy, cardiology has been consulted and will see the patient prior to surgery. ECHO has been ordered, pending read. Home Metoprolol restarted. Continue pain management. Patient case was discussed with Dr. Lunsford as well as plan. Job ID: [id number] [facility]
[2020-05-22] MEDS ORDERED: Phenylephrine 10 MG/ML VIAL ONE (13:00)
[2020-05-22] MEDS ORDERED: Clindamycin/D5W 900 mg/50 ml Premix Bag ONE (13:02)
[2020-05-22] MEDS ORDERED: Levofloxacin 500 mg/D5W 100 ml Premix Bag ONE (13:02)
[2020-05-22] MEDS ORDERED: Bupivacaine PF 0.5% 30 ML VIAL ONE (14:42)
--- NOTE | 2020-05-22 15:21 | RAD ---
XR Fluoro Per Hour Portable History: ORIF Comparison: CT prior day Findings: Satisfactory postoperative appearance bicondylar fracture. Impression: Satisfactory postoperative appearance
[2020-05-22] MEDS ORDERED: Promethazine HCl 25 MG/ML VIAL SLOW IVP PRN (15:41)
[2020-05-22] MEDS ORDERED: Ondansetron HCl/PF 4 MG/2 ML Vial IVP PRN (15:41)
[2020-05-22] MEDS ORDERED: Promethazine HCl 25 MG/ML VIAL IM PRN (15:41)
--- NOTE | 2020-05-22 15:48 | OP ---
DATE OF PROCEDURE: 05/22/2020 PROCEDURES PERFORMED: Open reduction, internal fixation of bicondylar left tibial plateau fracture. PREOPERATIVE DIAGNOSIS: Left bicondylar tibial plateau fracture with split and displacement. POSTOPERATIVE DIAGNOSIS: Left bicondylar tibial plateau fracture with split and displacement. COMPLICATIONS: None. ESTIMATED BLOOD LOSS: 100 mL. HIGH DENSITY TALC COATER OPERATOR: Terrell Lubin PA-C The assistant merchandiser surgeon was responsible for positioning the patient, preparing the injured extremity, applying the tourniquet, and assisting in preparation for surgery. The assistant merchandiser was instrumental in reducing the injured limb by applying traction and reduction maneuvers as well as holding retractors and reduction tools. The assistant merchandiser also was instrumental in assisting in exposure throughout the operation using appropriate retractors. The assistant merchandiser participated in closure of the operative site as well as dressing application and splint application. IMPLANTS: Synthes 3.5 mm proximal tibial plateau locking plate was utilized. INDICATION FOR PROCEDURE: Mr. Shafer is a 39-year-old male, who has fallen from a porch and fractured his left tibial plateau. He has been indicated for open reduction and internal fixation to restore anatomic alignment, promote healing, and prevent complications of his injury. Risks do include nerve or vascular injury, DVT, PE, posttraumatic arthritis, pain, and others. DESCRIPTION OF PROCEDURE: Mr. Shafer was identified in the preoperative holding area. His correct extremity was marked. He was carried to the operating room. He was positioned supine. General anesthesia was induced. A multidisciplinary time-out was performed. The left lower extremity was prepped and draped in sterile fashion. We began the procedure with anterolateral approach to the proximal tibia. We dissected down through the subcutaneous tissues to the fascia, which was opened. We then exposed the lateral cortex of the tibia. We worked more deeply and elevated our tissues anteriorly and posteriorly. We performed a sub-meniscal approach as well. After placing valgus stress on the knee, we were able to palpate the central defect, which was significantly depressed approximately 1 cm. At this point, we used an osteotome to hinge open our lateral cortex. This gave us access to the deeper aspect of the tibia. There was an impacted and displaced articular fragment with subcortical bone. This was elevated and medialized back into its anatomic position. There were multiple bony fragments, which were used as bone graft. We also used some corticocancellous chips for bone graft. At this point, we took x-ray images confirming that our central fragment was reduced, this was pinned in place. We then folded back down the lateral cortex. Again, we took x-rays confirming reduction. Next, we applied a Synthes lateral plate along the lateral cortex. We placed multiple screws proximally and distally. We used K-wires as well. Once we had an anatomic reduction and rigid fixation, we took final images. We thoroughly irrigated with copious lavage. We finally packed additional bone graft through a small cortical window. Next, we closed in layers fascia, followed by subcutaneous tissue and skin were closed. A sterile dressing was applied. The patient was taken to the recovery room in good condition. Job ID: [id number]
[2020-05-22] MEDS: Metoprolol Tartrate 100 MG TAB PO SCH (20:33)
[2020-05-22] MEDS: Clindamycin/D5W 900 MG in Premix Bag 1 BAG IVPB SCH (21:59)
[2020-05-23] MEDS: Clindamycin/D5W 900 MG in Premix Bag 1 BAG IVPB SCH (06:00)
[2020-05-23] MEDS: Acetaminophen 500 MG TAB PO SCH ×2 (06:01→14:30)
[2020-05-23] MEDS: traMADol HCl 50 MG TAB PO PRN ×2 (06:02→17:22)
[2020-05-23] MEDS: Ibuprofen 200 MG TAB PO SCH ×2 (06:02→14:29)
[2020-05-23 06:13] LABS: Anion Gap 14 mmol/L (10-20); BUN (Urea Nitrogen) 28 mg/dL (8.9-20.6); Calc. Creatinine Clearance 155 mL/min (70-130); Calcium 8.5 mg/dL (7.8-10.44); Carbon Dioxide 17 mmol/L (22-29); Chloride 110 mmol/L (98-107); Glucose 175 mg/dL (70-105); Magnesium 1.9 mg/dL (1.6-2.6); Phosphorus 2.5 mg/dL (2.3-4.7); Potassium 3.8 mmol/L (3.5-5.1); Sodium 137 mmol/L (136-145)
[2020-05-23 06:15] LABS: Band 4 % (5-11); Hemoglobin 12.9 g/dL (14.0-18.0); Lymphocytes 4 % (21-51); MDiff Complete? YES; Mean Corpuscular Hemoglobin 31.3 pg (27.0-31.0); Mean Platelet Volume 9.8 fL (7.4-10.4); Monocytes 6 % (0-10); Neutrophil 86 % (42-75); Platelet Count 174 thou/uL (130-400); Platelet Morphology Comment Appears Adequate; RBC Distribution Width 12.5 % (11.5-14.5); Red Blood Cell (RBC) Count 4.13 mill/uL (4.70-6.10); White Blood Cell (WBC) Count 21.6 thou/uL (4.8-10.8)
[2020-05-23] MEDS ORDERED: Magnesium 2 GM/50 ML 2 GM in Premix Bag 1 BAG IVPB SCH (08:00)
[2020-05-23] MEDS ORDERED: Lisinopril 20 MG TAB PO SCH (09:00)
[2020-05-23] MEDS ORDERED: Famotidine 20 MG TAB PO SCH (09:00)
[2020-05-23] MEDS ORDERED: Furosemide 40 MG TAB PO SCH (09:00)
[2020-05-23] MEDS: Metoprolol Tartrate 100 MG TAB PO SCH (09:26)
[2020-05-23] MEDS: K-Phos Neutral 250 MG TAB PO SCH ×2 (09:28→17:22)
[2020-05-23] MEDS: Cyclobenzaprine 10 MG TAB PO PRN (09:32)
[2020-05-23] MEDS: Senokot S 8.6-50 MG TAB PO SCH (09:41)
[2020-05-23] MEDS: Polyethylene Glycol 3350 17 GM Packet PO SCH (09:41)
--- NOTE | 2020-05-23 15:06 | RAD ---
XR Fluoro Per Hour Portable History: ORIF Comparison: CT prior day Findings: Satisfactory postoperative appearance bicondylar fracture. Impression: Satisfactory postoperative appearance Transcribed Date/Time: 05/23/2020 3:06 PM
--- NOTE | 2020-05-23 15:31 | DIS ---
DATE OF ADMISSION: 05/21/2020 DATE OF DISCHARGE: 05/23/2020 ADMISSION DIAGNOSIS: Mechanical fall, left tibial plateau fracture. DISCHARGE DIAGNOSIS: Mechanical fall, left tibial plateau fracture. CONSULTING PHYSICIAN: Dr. Cerda of Orthopedic Surgery and Dr. Taylor of Cardiology. PROCEDURES: The patient went to the OR on May 22, 2020, had open reduction and internal fixation of the right tibial plateau fracture. HOSPITAL COURSE: The patient is a 39-year-old male, who presented to the emergency department after a fall off a porch. He was found to have a left tibial plateau fracture, was admitted to the Trauma Service. He had a significant cardiac history with heart failure and an AICD. He had not seen a material combiner in several years. Dr. Taylor has previously seen him and was asked to evaluate the patient preoperatively for risk stratification. Patient received EKG and echo before it was deemed appropriate for him to go to the OR. He ultimately had an ORIF of the right tibial plateau fracture on May 22, 2020. Postoperatively, he worked with Physical and Occupational Therapy and was ultimately discharged home with a walker and a wheelchair. At the time of discharge, the patient's pain was well controlled. He was tolerating regular diet, moving around safely and voiding without difficulties. DISCHARGE DISPOSITION: Home. DISCHARGE CONDITION: Satisfactory. PHYSICAL EXAMINATION: VITAL SIGNS: Temperature 99.1, pulse 90, respirations 16, oxygen saturation 96% on room air, blood pressure 167/92. GENERAL: Well-appearing middle-aged male, sitting up in wheelchair with no signs of acute distress. PULMONARY: Equal chest rise and fall. No signs of acute respiratory distress. CARDIAC: Regular rate and rhythm. NEUROLOGIC: GCS is 15. DISCHARGE INSTRUCTIONS: The patient was discharged home. Activity as tolerated. Nonweightbearing to the left lower extremity. Regular diet. No PT needs. The patient will have a walker and a wheelchair. DISCHARGE MEDICATIONS: 1. Tylenol. 2. Aspirin. 3. Flexeril. 4. Lovenox. 5. Ibuprofen. 6. Nitroglycerin. 7. MiraLAX. 8. Tramadol. FOLLOWUP APPOINTMENTS: The patient is to follow up with Dr. Taylor and Dr. Cerda. No followup is needed with Dr. Lunsford in clinic. This is a summary of the patient's hospitalization. For full details, please see his medical record in its entirety. The [place] [employer] Monitoring Program was accessed and the patient was discharged home with medications used to treat his pain while he was in the hospital. This patient was seen and evaluated by myself and Dr. Lunsford on the day of discharge. Job ID: [id number]
[2020-05-23 16:34] VITALS: BP 137/83; TEMP 98.4
[2020-05-23] MEDS ORDERED: Enoxaparin Sodium 40 MG/0.4 ML SYRINGE SC SCH (21:00)
== END 2020-05-23 17:55 | disposition home or self-care (01) | DRG 493 ==
LOC: ERS 16:36 → SURG A 17:42
PROVIDERS: ADMIT Specialist; ATTEND Specialist
PROC: 0QSH04Z Reposition Left Tibia with Internal Fixation Device, Open Approach (ICD-10-PCS; principal; 2020-05-22)
DX: S82.142A Displaced bicondylar fracture of left tibia, initial encounter for closed fracture (principal); I42.0 Dilated cardiomyopathy; Z68.41 Body mass index [BMI] 40.0-44.9, adult; Z20.822 Contact with and (suspected) exposure to COVID-19; W17.89XA Other fall from one level to another, initial encounter; Y92.008 Other place in unspecified non-institutional (private) residence as the place of occurrence of the external cause; I25.5 Ischemic cardiomyopathy; I50.9 Heart failure, unspecified; I11.0 Hypertensive heart disease with heart failure; F17.210 Nicotine dependence, cigarettes, uncomplicated; E66.01 Morbid (severe) obesity due to excess calories; Z79.899 Other long term (current) drug therapy; Z79.82 Long term (current) use of aspirin; Z95.810 Presence of automatic (implantable) cardiac defibrillator; Z88.0 Allergy status to penicillin
CPT/HCPCS: 36415; 71045; 76000; 80048; 80053; 83735; 83880; 84100; 85025; 85610; 85730; 87635; 93005; 93306; 96374; C1713; J1100; J1650; J1885; J1956; J2250; J2270; J2370; J2405; J3010; J3475; J3490; S0020; S0028; U0003; U0005

== ENCOUNTER 2020-11-15 00:20 | Inpatient (IN) | payer SELFPAY ==
[2020-11-15] MEDS ORDERED: Furosemide 40 MG/4 ML VIAL ONE ×2 (00:55→10:54)
[2020-11-15 00:59] LABS: #Basophils 0.1 thou/uL (0.0-0.2); #Eosinphils 0.2 thou/uL (0.0-0.7); #Lymphocytes 2.8 thou/uL (1.20-3.40); #Monocytes 0.8 thou/uL (0.11-0.59); #Neutrophils 10.5 thou/uL (1.40-6.50); %Basophils 0.3 % (0.0-1.0); %Eosinophils 1.4 % (0.0-10.0); %Lymphocytes 19.5 % (21.0-51.0); %Monocytes 5.6 % (0.0-10.0); %Neutrophils 73.1 % (42.0-75.0); Hemoglobin 13.9 g/dL (14.0-18.0); Mean Corpuscular HGB CONC 34.2 g/dL (32.0-36.0); Mean Corpuscular Hemoglobin 30.7 pg (27.0-31.0); Mean Corpuscular Volume 89.7 fL (78.0-98.0); Mean Platelet Volume 9.1 fL (7.4-10.4); Platelet Count 196 thou/uL (130-400); RBC Distribution Width 12.8 % (11.5-14.5); Red Blood Cell (RBC) Count 4.51 mill/uL (4.70-6.10); White Blood Cell (WBC) Count 14.4 thou/uL (4.8-10.8)
[2020-11-15 01:19] LABS: ALT (SGPT) 16 U/L (8-55); AST (SGOT) 22 U/L (5-34); Albumin 3.5 g/dL (3.5-5.0); Alkaline Phosphatase 71 U/L (40-110); Anion Gap 7 mmol/L (10-20); BUN (Urea Nitrogen) 15 mg/dL (8.9-20.6); Bilirubin, Total 0.6 mg/dL (0.2-1.2); Calc. Creatinine Clearance 0 mL/min (70-130); Calcium 8.9 mg/dL (7.8-10.44); Carbon Dioxide 24 mmol/L (22-29); Chloride 107 mmol/L (98-107); Globulin 3.4 g/dL (2.4-3.5); Glucose 102 mg/dL (70-105); Potassium 3.2 mmol/L (3.5-5.1); Protein, Total 6.9 g/dL (6.0-8.3); Sodium 135 mmol/L (136-145)
[2020-11-15 01:41] LABS: CKMB 2.7 ng/mL (0-6.6)
[2020-11-15] MEDS ORDERED: Aspirin Chewable 81 MG TAB ONE (01:41)
[2020-11-15 03:14] LABS: SARS-CoV-2 NAA Rapid Test Not Detected (NotDetected)
[2020-11-15] MEDS ORDERED: Acetaminophen 325 MG TAB PO PRN (03:15)
[2020-11-15] MEDS ORDERED: Ondansetron ODT 4 MG TAB SL PRN (03:15)
[2020-11-15] MEDS ORDERED: Ondansetron PF 4 MG/2 ML Vial IVP PRN (03:15)
[2020-11-15 03:24] VITALS: BMI 39.0
[2020-11-15] MEDS ORDERED: Potassium Chloride 20 MEQ TAB PO SCH ×3 (04:30→22:15)
[2020-11-15] MEDS ORDERED: Electrolyte Replacement Protocol 1 EACH FS SCH (04:30)
[2020-11-15 05:04] LABS: Anion Gap 13 mmol/L (10-20); BUN (Urea Nitrogen) 13 mg/dL (8.9-20.6); Calc. Creatinine Clearance 153 mL/min (70-130); Calcium 8.5 mg/dL (7.8-10.44); Carbon Dioxide 19 mmol/L (22-29); Chloride 107 mmol/L (98-107); Glucose 123 mg/dL (70-105); Magnesium 1.9 mg/dL (1.6-2.6); Potassium 3.1 mmol/L (3.5-5.1); Sodium 136 mmol/L (136-145)
[2020-11-15 05:09] LABS: Troponin I 0.063 ng/mL (< 0.028)
[2020-11-15] MEDS ORDERED: Potassium Chloride 20 MEQ TAB ONE (05:40)
[2020-11-15] MEDS ORDERED: Magnesium 2 GM/50 ML 2 GM in Premix Bag 1 BAG IVPB SCH (06:15)
[2020-11-15] MEDS ORDERED: Furosemide 40 MG/4 ML VIAL SLOW IVP SCH (09:00)
[2020-11-15 12:38] LABS: Anion Gap 10 mmol/L (10-20); BUN (Urea Nitrogen) 15 mg/dL (8.9-20.6); Calc. Creatinine Clearance 149 mL/min (70-130); Calcium 8.9 mg/dL (7.8-10.44); Carbon Dioxide 26 mmol/L (22-29); Chloride 103 mmol/L (98-107); Glucose 115 mg/dL (70-105); Potassium 3.5 mmol/L (3.5-5.1); Sodium 135 mmol/L (136-145)
[2020-11-15] MEDS ORDERED: Furosemide 100 MG/10 ML VIAL SLOW IVP SCH (20:30)
[2020-11-15] MEDS ORDERED: Carvedilol 3.125 MG TAB PO SCH (20:45)
[2020-11-15] MEDS: Lisinopril 5 MG TAB PO SCH (20:54)
[2020-11-15 22:14] LABS: Amphetamine Detected (NotDetected); Barbiturates Screen Not Detected (NotDetected); Benzodiazepine Screen Not Detected (NotDetected); Cocaine Metabolite Screen Not Detected (NotDetected); Methadone Not Detected (NotDetected); Methamphetamine Detected (NotDetected); Opiate Screen Not Detected (NotDetected); Oxycodone Screen Not Detected (NotDetected); Phencyclidine (PCP) Not Detected (NotDetected); THC/Cannabinoid Screen Not Detected (NotDetected); Tricyclic Screen Not Detected (NotDetected)
[2020-11-16 04:33] LABS: #Basophils 0.1 thou/uL (0.0-0.2); #Eosinphils 0.4 thou/uL (0.0-0.7); #Lymphocytes 2.3 thou/uL (1.20-3.40); #Monocytes 0.9 thou/uL (0.11-0.59); #Neutrophils 10.3 thou/uL (1.40-6.50); %Basophils 0.5 % (0.0-1.0); %Eosinophils 2.7 % (0.0-10.0); %Lymphocytes 16.7 % (21.0-51.0); %Monocytes 6.4 % (0.0-10.0); %Neutrophils 73.6 % (42.0-75.0); Hemoglobin 15.3 g/dL (14.0-18.0); Mean Corpuscular HGB CONC 34.8 g/dL (32.0-36.0); Mean Corpuscular Hemoglobin 31.3 pg (27.0-31.0); Mean Corpuscular Volume 89.9 fL (78.0-98.0); Mean Platelet Volume 9.2 fL (7.4-10.4); Platelet Count 210 thou/uL (130-400); RBC Distribution Width 12.9 % (11.5-14.5)
[2020-11-16 04:44] LABS: Potassium 3.2 mmol/L (3.5-5.1)
[2020-11-16 04:52] LABS: Anion Gap 10 mmol/L (10-20); BUN (Urea Nitrogen) 16 mg/dL (8.9-20.6); Calc. Creatinine Clearance 168 mL/min (70-130); Calcium 9.1 mg/dL (7.8-10.44); Carbon Dioxide 25 mmol/L (22-29); Cardiac Risk 5.4 (Less than 4.5); Chloride 105 mmol/L (98-107); Cholesterol 173 mg/dl (< 200 Desired); Glucose 89 mg/dL (70-105); HDL Cholesterol 32 mg/dL (>60 Neg Risk); LDL Cholesterol, Calculated 109 mg/dL; Potassium 3.2 mmol/L (3.5-5.1); Sodium 137 mmol/L (136-145); Triglycerides 161 mg/dL (Less than 150)
[2020-11-16 05:09] LABS: Free T4 (Free Thyroxine) 1.07 ng/dL (0.70-1.48); Thyroid Stimulating Hormone 1.3023 uIU/mL (0.35-4.94)
[2020-11-16] MEDS ORDERED: Potassium Chloride 20 MEQ TAB PO SCH (05:15)
[2020-11-16] MEDS: Furosemide 100 MG/10 ML VIAL SLOW IVP SCH ×2 (05:53→15:45)
[2020-11-16] MEDS: Carvedilol 3.125 MG TAB PO SCH ×2 (07:53→17:22)
[2020-11-16] MEDS: Lisinopril 5 MG TAB PO SCH (07:53)
[2020-11-16] MEDS: Lisinopril 10 MG TAB PO SCH (20:21)
[2020-11-17 05:48] LABS: #Basophils 0.1 thou/uL (0.0-0.2); #Eosinphils 0.5 thou/uL (0.0-0.7); #Lymphocytes 3.2 thou/uL (1.20-3.40); #Monocytes 1.4 thou/uL (0.11-0.59); #Neutrophils 13.2 thou/uL (1.40-6.50); %Basophils 0.3 % (0.0-1.0); %Eosinophils 2.6 % (0.0-10.0); %Lymphocytes 17.2 % (21.0-51.0); %Monocytes 7.7 % (0.0-10.0); %Neutrophils 72.1 % (42.0-75.0); Hemoglobin 15.3 g/dL (14.0-18.0); Mean Corpuscular HGB CONC 32.1 g/dL (32.0-36.0); Mean Corpuscular Hemoglobin 29.2 pg (27.0-31.0); Mean Corpuscular Volume 90.9 fL (78.0-98.0); Mean Platelet Volume 9.5 fL (7.4-10.4); Platelet Count 249 thou/uL (130-400); RBC Distribution Width 13.1 % (11.5-14.5); Red Blood Cell (RBC) Count 5.23 mill/uL (4.70-6.10); White Blood Cell (WBC) Count 18.3 thou/uL (4.8-10.8)
[2020-11-17] MEDS: Furosemide 100 MG/10 ML VIAL SLOW IVP SCH ×2 (06:07→12:15)
[2020-11-17 06:19] LABS: Anion Gap 12 mmol/L (10-20); BUN (Urea Nitrogen) 18 mg/dL (8.9-20.6); Calc. Creatinine Clearance 138 mL/min (70-130); Calcium 9.6 mg/dL (7.8-10.44); Carbon Dioxide 25 mmol/L (22-29); Chloride 105 mmol/L (98-107); Glucose 83 mg/dL (70-105); Potassium 3.5 mmol/L (3.5-5.1); Sodium 138 mmol/L (136-145)
[2020-11-17] MEDS: Lisinopril 10 MG TAB PO SCH (07:51)
[2020-11-17] MEDS: Carvedilol 3.125 MG TAB PO SCH (07:52)
[2020-11-17] MEDS ORDERED: Potassium Chloride 20 MEQ TAB PO SCH (08:00)
[2020-11-17 12:23] VITALS: BP 122/83; TEMP 99.3
[2020-11-18] MEDS ORDERED: Furosemide 40 MG TAB PO SCH (07:30)
[2020-11-18] MEDS ORDERED: Potassium Chloride 10 MEQ TAB PO SCH (08:00)
== END 2020-11-17 14:33 | disposition home or self-care (01) | DRG 291 ==
LOC: ERS 00:20 → ERHOLD 01:59 → OBSVTOIN 15:20 → 2SW 16:42
PROVIDERS: ADMIT Student in an Organized Health Care Education/Training Program; ATTEND Internal Medicine
DX: I13.0 Hypertensive heart and chronic kidney disease with heart failure and stage 1 through stage 4 chronic kidney disease, or unspecified chronic kidney disease (principal); I50.23 Acute on chronic systolic (congestive) heart failure; E87.1 Hypo-osmolality and hyponatremia; N18.9 Chronic kidney disease, unspecified; F17.210 Nicotine dependence, cigarettes, uncomplicated; J45.909 Unspecified asthma, uncomplicated; I08.1 Rheumatic disorders of both mitral and tricuspid valves; E78.5 Hyperlipidemia, unspecified; E66.9 Obesity, unspecified; I16.0 Hypertensive urgency; F15.10 Other stimulant abuse, uncomplicated; Z20.822 Contact with and (suspected) exposure to COVID-19; I42.7 Cardiomyopathy due to drug and external agent; E87.6 Hypokalemia; Z95.810 Presence of automatic (implantable) cardiac defibrillator; Z88.0 Allergy status to penicillin; Z79.82 Long term (current) use of aspirin; Z79.899 Other long term (current) drug therapy; Z91.19 Patient's noncompliance with other medical treatment and regimen; Z71.6 Tobacco abuse counseling; Z68.39 Body mass index [BMI] 39.0-39.9, adult
CPT/HCPCS: 0240U; 36415; 71045; 80048; 80053; 80061; 80306; 82553; 83735; 83880; 84439; 84443; 84484; 85025; 93005; 93306; 96374; 96376; 97139; G0378; J1940

== ENCOUNTER 2021-02-26 23:42 | Inpatient (IN) | payer SELFPAY ==
[2021-02-27 00:06] LABS: #Eosinphils 0.2 thou/uL (0.0-0.7); #Monocytes 0.8 thou/uL (0.11-0.59); #Neutrophils 9.9 thou/uL (1.40-6.50); %Basophils 0.3 % (0.0-1.0); %Eosinophils 1.1 % (0.0-10.0); %Lymphocytes 21.8 % (21.0-51.0); %Monocytes 5.9 % (0.0-10.0); %Neutrophils 70.9 % (42.0-75.0); Hemoglobin 14.6 g/dL (14.0-18.0); Mean Corpuscular Hemoglobin 30.5 pg (27.0-31.0); Mean Corpuscular Volume 89.6 fL (78.0-98.0); Mean Platelet Volume 8.5 fL (7.4-10.4); Platelet Count 204 thou/uL (130-400); RBC Distribution Width 13.6 % (11.5-14.5); Red Blood Cell (RBC) Count 4.79 mill/uL (4.70-6.10)
[2021-02-27 00:26] LABS: ALT (SGPT) 20 U/L (8-55); AST (SGOT) 22 U/L (5-34); Albumin 3.5 g/dL (3.5-5.0); Alkaline Phosphatase 77 U/L (40-110); Anion Gap 10 mmol/L (10-20); BUN (Urea Nitrogen) 17 mg/dL (8.9-20.6); Bilirubin, Total 0.7 mg/dL (0.2-1.2); Calc. Creatinine Clearance 0 mL/min (70-130); Calcium 9.1 mg/dL (7.8-10.44); Carbon Dioxide 24 mmol/L (22-29); Chloride 106 mmol/L (98-107); Globulin 3.2 g/dL (2.4-3.5); Glucose 106 mg/dL (70-105); Potassium 3.5 mmol/L (3.5-5.1); Protein, Total 6.7 g/dL (6.0-8.3); Sodium 136 mmol/L (136-145)
[2021-02-27 00:49] LABS: CKMB 3.6 ng/mL (0-6.6)
[2021-02-27] MEDS ORDERED: Furosemide 20 MG/2 ML VIAL ONE ×2 (00:52→13:20)
[2021-02-27 01:16] LABS: Analyzer IN Cardio ER; Base Excess (BEa) 0.4 mEq/L (-2.0 to +3.0); CO2 Tension 31.6 mmHg (35.0-45.0); Calcium, Ionized (arterial) 1.14 mmol/L (1.12-1.30); O2 Tension (PaO2), arterial 162.6 mmHg (80.0-100.0); Potassium - ABG Lab 3.21 mmol/L (3.70-5.30); pH, Arterial 7.48 (7.35-7.45)
[2021-02-27 01:22] LABS: Puncture Site RRA
[2021-02-27] MEDS ORDERED: Ondansetron PF 4 MG/2 ML Vial IVP PRN (02:50)
[2021-02-27] MEDS ORDERED: Acetaminophen 325 MG TAB PO PRN (02:50)
[2021-02-27] MEDS ORDERED: hydrALAZINE 20 MG/ML VIAL SLOW IVP PRN (02:53)
[2021-02-27 03:17] LABS: Troponin I 0.082 ng/mL (< 0.028)
[2021-02-27 04:05] LABS: #Basophils 0.1 thou/uL (0.0-0.2); #Eosinphils 0.2 thou/uL (0.0-0.7); #Lymphocytes 2.8 thou/uL (1.20-3.40); #Monocytes 0.9 thou/uL (0.11-0.59); #Neutrophils 10.2 thou/uL (1.40-6.50); %Basophils 0.5 % (0.0-1.0); %Eosinophils 1.4 % (0.0-10.0); %Lymphocytes 19.5 % (21.0-51.0); %Monocytes 6.5 % (0.0-10.0); Hemoglobin 14.7 g/dL (14.0-18.0); Mean Corpuscular Hemoglobin 30.7 pg (27.0-31.0); Mean Corpuscular Volume 90.3 fL (78.0-98.0); Mean Platelet Volume 8.8 fL (7.4-10.4); Platelet Count 203 thou/uL (130-400); RBC Distribution Width 13.5 % (11.5-14.5); White Blood Cell (WBC) Count 14.2 thou/uL (4.8-10.8)
[2021-02-27 04:26] LABS: Anion Gap 11 mmol/L (10-20); BUN (Urea Nitrogen) 16 mg/dL (8.9-20.6); Calc. Creatinine Clearance 0 mL/min (70-130); Calcium 8.9 mg/dL (7.8-10.44); Carbon Dioxide 24 mmol/L (22-29); Chloride 105 mmol/L (98-107); Glucose 104 mg/dL (70-105); Magnesium 1.9 mg/dL (1.6-2.6); Potassium 3.3 mmol/L (3.5-5.1); Sodium 137 mmol/L (136-145)
[2021-02-27] MEDS ORDERED: Furosemide 40 MG/4 ML VIAL ONE (06:11)
[2021-02-27] MEDS: Furosemide 40 MG/4 ML VIAL SLOW IVP SCH ×2 (06:17→13:18)
[2021-02-27 06:21] LABS: Troponin I 0.065 ng/mL (< 0.028)
[2021-02-27 08:39] LABS: SARS-CoV-2 NAA Rapid Test Not Detected (NotDetected)
[2021-02-27] MEDS ORDERED: Enoxaparin Sodium 40 MG/0.4 ML SYRINGE ONE (08:40)
[2021-02-27] MEDS: Enoxaparin Sodium 40 MG/0.4 ML SYRINGE SC SCH (08:44)
[2021-02-27] MEDS ORDERED: Potassium Chloride 20 MEQ TAB PO SCH (11:00)
[2021-02-27] MEDS ORDERED: Metoprolol Tartrate 25 MG TAB ONE (13:20)
[2021-02-27] MEDS ORDERED: Potassium Chloride 20 MEQ TAB ONE (13:20)
[2021-02-27 15:56] LABS: Bacteria/HPF None Seen HPF (None Seen); Bilirubin Negative (Negative); Blood, Urine Negative (Negative); Clarity Clear (Clear); Glucose, Urine (Dipstick) Normal (Negative); Ketone, Urine Negative (Negative); Leukocyte Negative Leu/uL (Negative); Nitrite Negative (Negative); Protein, Urine (Dipstick) Negative (Neg-Trace); RBC/HPF None Seen HPF (0-3); Specific Gravity, Urine 1.006 (1.002-1.036); Squamous Epithelial None Seen HPF (0-3); Urobilinogen Normal mg/dL (Less than 2); WBC/HPF 0-3 HPF (0-3)
[2021-02-27 15:59] LABS: Urine Culture Reflex No No
[2021-02-27 16:04] LABS: Amphetamine Not Detected (NotDetected); Barbiturates Screen Not Detected (NotDetected); Benzodiazepine Screen Not Detected (NotDetected); Cocaine Metabolite Screen Not Detected (NotDetected); Methadone Not Detected (NotDetected); Methamphetamine Detected (NotDetected); Opiate Screen Not Detected (NotDetected); Oxycodone Screen Not Detected (NotDetected); Phencyclidine (PCP) Not Detected (NotDetected); THC/Cannabinoid Screen Not Detected (NotDetected); Tricyclic Screen Not Detected (NotDetected)
[2021-02-27 18:56] VITALS: BMI 44.5
[2021-02-27] MEDS: Lisinopril 10 MG TAB PO SCH (20:28)
[2021-02-27] MEDS ORDERED: Melatonin 3 MG TAB PO SCH (21:30)
[2021-02-28 05:12] LABS: Anion Gap 11 mmol/L (10-20); BUN (Urea Nitrogen) 20 mg/dL (8.9-20.6); Calc. Creatinine Clearance 131 mL/min (70-130); Calcium 9.3 mg/dL (7.8-10.44); Carbon Dioxide 23 mmol/L (22-29); Chloride 106 mmol/L (98-107); Glucose 108 mg/dL (70-105); Magnesium 2.1 mg/dL (1.6-2.6); Potassium 3.7 mmol/L (3.5-5.1); Sodium 136 mmol/L (136-145)
[2021-02-28] MEDS: Furosemide 40 MG/4 ML VIAL SLOW IVP SCH (05:41)
[2021-02-28 06:12] LABS: #Basophils 0.1 thou/uL (0.0-0.2); #Eosinphils 0.2 thou/uL (0.0-0.7); #Lymphocytes 2.5 thou/uL (1.20-3.40); #Monocytes 0.9 thou/uL (0.11-0.59); #Neutrophils 9.7 thou/uL (1.40-6.50); %Basophils 0.4 % (0.0-1.0); %Eosinophils 1.4 % (0.0-10.0); %Lymphocytes 18.6 % (21.0-51.0); %Monocytes 6.9 % (0.0-10.0); %Neutrophils 72.6 % (42.0-75.0); Hemoglobin 14.9 g/dL (14.0-18.0); Mean Corpuscular Hemoglobin 30.6 pg (27.0-31.0); Mean Corpuscular Volume 89.9 fL (78.0-98.0); Mean Platelet Volume 9.1 fL (7.4-10.4); Platelet Count 209 thou/uL (130-400); RBC Distribution Width 13.4 % (11.5-14.5); Red Blood Cell (RBC) Count 4.86 mill/uL (4.70-6.10); White Blood Cell (WBC) Count 13.4 thou/uL (4.8-10.8)
[2021-02-28] MEDS ORDERED: Potassium Chloride 20 MEQ TAB PO SCH (08:00)
[2021-02-28] MEDS: Lisinopril 10 MG TAB PO SCH (09:00)
[2021-02-28] MEDS: Enoxaparin Sodium 40 MG/0.4 ML SYRINGE SC SCH (09:01)
[2021-02-28] MEDS ORDERED: Melatonin 3 MG TAB PO PRN (12:04)
[2021-02-28 12:47] VITALS: BP 134/70; TEMP 98.2
[2021-02-28] MEDS ORDERED: Furosemide 40 MG TAB PO SCH (14:00)
[2021-02-28] MEDS ORDERED: Carvedilol 3.125 MG TAB PO SCH (21:00)
[2021-03-01] MEDS ORDERED: Furosemide 40 MG TAB PO SCH (07:30)
[2021-03-01] MEDS ORDERED: Potassium Chloride 20 MEQ TAB PO SCH (08:00)
== END 2021-02-28 14:10 | disposition home or self-care (01) | DRG 291 ==
LOC: ERS 23:42 → ERHOLD 02-27 01:52 → 2NO 02-27 16:44
PROVIDERS: ADMIT Internal Medicine; ATTEND Physician Assistant
PROC: 5A09357 Assistance with Respiratory Ventilation, Less than 24 Consecutive Hours, Continuous Positive Airway Pressure (ICD-10-PCS; principal; 2021-02-27)
DX: I11.0 Hypertensive heart disease with heart failure (principal); I50.23 Acute on chronic systolic (congestive) heart failure; J96.01 Acute respiratory failure with hypoxia; N17.9 Acute kidney failure, unspecified; Z20.822 Contact with and (suspected) exposure to COVID-19; I24.8 Other forms of acute ischemic heart disease; I25.5 Ischemic cardiomyopathy; J45.909 Unspecified asthma, uncomplicated; F17.210 Nicotine dependence, cigarettes, uncomplicated; D72.829 Elevated white blood cell count, unspecified; F15.11 Other stimulant abuse, in remission; Z86.16 Personal history of COVID-19; Z88.0 Allergy status to penicillin; Z79.899 Other long term (current) drug therapy; Z95.810 Presence of automatic (implantable) cardiac defibrillator; Z82.49 Family history of ischemic heart disease and other diseases of the circulatory system; Z71.51 Drug abuse counseling and surveillance of drug abuser
CPT/HCPCS: 36415; 36600; 71045; 80048; 80053; 80306; 81001; 82553; 82805; 83735; 83880; 84300; 84484; 85025; 93005; 94660; 96374; J1650; J1940; U0002

== ENCOUNTER 2021-03-02 22:51 | Inpatient (IN) | payer SELFPAY ==
[2021-03-02 23:14] LABS: Actual Bicarbonate (HCO3a) 18.3 mEq/L (22-28); Analyzer IN Cardio ER; Base Excess (BEa) -4.5 mEq/L (-2.0 to +3.0); CO2 Tension 28.5 mmHg (35.0-45.0); Calcium, Ionized (arterial) 1.15 mmol/L (1.12-1.30); Carboxyhemoglobin (COHb) 0.7 gm% (0.0-3.0); Hemoglobin (Hb) 15.6 g/dL (14.0-18.0); O2 Tension (PaO2), arterial 265.1 mmHg (80.0-100.0); Potassium - ABG Lab 3.97 mmol/L (3.70-5.30); pH, Arterial 7.43 (7.35-7.45)
[2021-03-02 23:15] LABS: ALV-art Gradient 127.075 mmHg (0-20); Puncture Site RRA
[2021-03-02] MEDS ORDERED: Nitroglycerin 0.4 MG TAB 1 EACH ONE ×2 (23:32→23:33)
[2021-03-02] MEDS ORDERED: Furosemide 40 MG/4 ML VIAL ONE (23:32)
[2021-03-02 23:37] LABS: #Eosinphils 0.1 thou/uL (0.0-0.7); #Lymphocytes 1.5 thou/uL (1.20-3.40); #Monocytes 0.9 thou/uL (0.11-0.59); #Neutrophils 9.6 thou/uL (1.40-6.50); %Basophils 0.3 % (0.0-1.0); %Eosinophils 0.4 % (0.0-10.0); %Lymphocytes 12.1 % (21.0-51.0); %Monocytes 7.1 % (0.0-10.0); %Neutrophils 80.1 % (42.0-75.0); Mean Corpuscular HGB CONC 32.5 g/dL (32.0-36.0); Mean Corpuscular Hemoglobin 29.3 pg (27.0-31.0); Mean Corpuscular Volume 90.3 fL (78.0-98.0); Mean Platelet Volume 8.6 fL (7.4-10.4); Platelet Count 217 thou/uL (130-400); RBC Distribution Width 13.6 % (11.5-14.5)
[2021-03-02 23:58] LABS: ALT (SGPT) 42 U/L (8-55); AST (SGOT) 49 U/L (5-34); Albumin 3.6 g/dL (3.5-5.0); Alkaline Phosphatase 81 U/L (40-110); Anion Gap 13 mmol/L (10-20); BUN (Urea Nitrogen) 20 mg/dL (8.9-20.6); Bilirubin, Total 1.2 mg/dL (0.2-1.2); CK (CPK) 198 U/L (30-200); Calc. Creatinine Clearance 0 mL/min (70-130); Calcium 8.8 mg/dL (7.8-10.44); Carbon Dioxide 18 mmol/L (22-29); Chloride 106 mmol/L (98-107); Globulin 3.1 g/dL (2.4-3.5); Glucose 102 mg/dL (70-105); Lipase 11 U/L (8-78); Potassium 4.2 mmol/L (3.5-5.1); Protein, Total 6.7 g/dL (6.0-8.3); Sodium 133 mmol/L (136-145)
[2021-03-03 00:17] LABS: CKMB 2.9 ng/mL (0-6.6)
[2021-03-03] MEDS ORDERED: Ondansetron PF 4 MG/2 ML Vial IVP PRN (03:00)
[2021-03-03] MEDS ORDERED: Ondansetron ODT 4 MG TAB SL PRN (03:00)
[2021-03-03] MEDS ORDERED: Acetaminophen 650 MG Suppository PR PRN (03:30)
[2021-03-03] MEDS ORDERED: Acetaminophen 325 MG TAB PO PRN (03:30)
[2021-03-03] MEDS ORDERED: Electrolyte Replacement Protocol 1 EACH FS SCH (04:00)
[2021-03-03 04:05] LABS: #Basophils 0.1 thou/uL (0.0-0.2); #Lymphocytes 0.5 thou/uL (1.20-3.40); #Monocytes 0.2 thou/uL (0.11-0.59); #Neutrophils 9.5 thou/uL (1.40-6.50); %Basophils 0.5 % (0.0-1.0); %Eosinophils 0.2 % (0.0-10.0); %Lymphocytes 5.2 % (21.0-51.0); %Monocytes 2.1 % (0.0-10.0); Hemoglobin 15.1 g/dL (14.0-18.0); Mean Corpuscular HGB CONC 33.4 g/dL (32.0-36.0); Mean Corpuscular Hemoglobin 30.1 pg (27.0-31.0); Mean Corpuscular Volume 90.2 fL (78.0-98.0); Mean Platelet Volume 8.7 fL (7.4-10.4); Platelet Count 214 thou/uL (130-400); RBC Distribution Width 13.3 % (11.5-14.5); White Blood Cell (WBC) Count 10.3 thou/uL (4.8-10.8)
[2021-03-03 04:07] LABS: CKMB 2.8 ng/mL (0-6.6)
[2021-03-03] MEDS ORDERED: Furosemide 40 MG/4 ML VIAL SLOW IVP SCH ×3 (04:15→09:00)
[2021-03-03 04:23] LABS: Anion Gap 14 mmol/L (10-20); BUN (Urea Nitrogen) 20 mg/dL (8.9-20.6); Calc. Creatinine Clearance 0 mL/min (70-130); Calcium 8.9 mg/dL (7.8-10.44); Carbon Dioxide 20 mmol/L (22-29); Chloride 105 mmol/L (98-107); Glucose 129 mg/dL (70-105); Potassium 3.8 mmol/L (3.5-5.1); Sodium 135 mmol/L (136-145)
[2021-03-03] MEDS ORDERED: hydrALAZINE 20 MG/ML VIAL SLOW IVP PRN (04:24)
[2021-03-03] MEDS: Nitroglycerin 2% Ointment 1 INCH/1 GM Packet TOP SCH ×2 (06:32→13:31)
[2021-03-03] MEDS: Enoxaparin Sodium 40 MG/0.4 ML SYRINGE SC SCH (07:14)
[2021-03-03] MEDS ORDERED: Aspirin 325 MG TAB PO SCH (08:00)
[2021-03-03] MEDS: Carvedilol 3.125 MG TAB PO SCH ×2 (09:32→21:00)
[2021-03-03] MEDS: Lisinopril 10 MG TAB PO SCH ×2 (09:32→21:00)
[2021-03-03 09:53] VITALS: BMI 44.4
[2021-03-03] MEDS: Furosemide 40 MG/4 ML VIAL SLOW IVP SCH (13:31)
[2021-03-04 04:09] LABS: Anion Gap 10 mmol/L (10-20); BUN (Urea Nitrogen) 28 mg/dL (8.9-20.6); Calc. Creatinine Clearance 138 mL/min (70-130); Carbon Dioxide 27 mmol/L (22-29); Chloride 103 mmol/L (98-107); Glucose 139 mg/dL (70-105); Potassium 3.7 mmol/L (3.5-5.1); Sodium 136 mmol/L (136-145)
[2021-03-04] MEDS: Furosemide 40 MG/4 ML VIAL SLOW IVP SCH ×2 (05:17→13:55)
[2021-03-04] MEDS: Carvedilol 3.125 MG TAB PO SCH ×2 (08:17→19:58)
[2021-03-04] MEDS: Lisinopril 10 MG TAB PO SCH ×2 (08:17→19:58)
[2021-03-04] MEDS: Enoxaparin Sodium 40 MG/0.4 ML SYRINGE SC SCH (08:17)
[2021-03-04] MEDS ORDERED: Furosemide 40 MG/4 ML VIAL SLOW IVP SCH (21:00)
[2021-03-05 05:25] LABS: Anion Gap 12 mmol/L (10-20); BUN (Urea Nitrogen) 23 mg/dL (8.9-20.6); Calc. Creatinine Clearance 132 mL/min (70-130); Calcium 8.6 mg/dL (7.8-10.44); Carbon Dioxide 24 mmol/L (22-29); Chloride 105 mmol/L (98-107); Glucose 86 mg/dL (70-105); Magnesium 2.1 mg/dL (1.6-2.6); Potassium 3.4 mmol/L (3.5-5.1); Sodium 138 mmol/L (136-145)
[2021-03-05] MEDS: Furosemide 40 MG/4 ML VIAL SLOW IVP SCH ×2 (05:49→14:05)
[2021-03-05] MEDS ORDERED: Potassium Chloride 20 MEQ TAB PO SCH (06:45)
[2021-03-05] MEDS: Lisinopril 10 MG TAB PO SCH (08:56)
[2021-03-05] MEDS: Enoxaparin Sodium 40 MG/0.4 ML SYRINGE SC SCH (08:56)
[2021-03-05] MEDS: Carvedilol 6.25 MG TAB PO SCH ×2 (08:56→17:32)
[2021-03-05] MEDS ORDERED: Nicotine 21 MG PATCH TD SCH (09:00)
[2021-03-05 16:14] VITALS: TEMP 98
[2021-03-05 17:33] VITALS: BP 142/92
== END 2021-03-05 18:08 | disposition home or self-care (01) | DRG 291 ==
LOC: ERS 22:51 → IMCU/EMU 03-03 01:35 → 2NO 03-04 17:54
PROVIDERS: ADMIT Student in an Organized Health Care Education/Training Program; ATTEND Family Medicine
PROC: 5A09357 Assistance with Respiratory Ventilation, Less than 24 Consecutive Hours, Continuous Positive Airway Pressure (ICD-10-PCS; principal; 2021-03-03)
DX: I13.0 Hypertensive heart and chronic kidney disease with heart failure and stage 1 through stage 4 chronic kidney disease, or unspecified chronic kidney disease (principal); I50.23 Acute on chronic systolic (congestive) heart failure; E87.1 Hypo-osmolality and hyponatremia; I47.2 Ventricular tachycardia; N18.30 Chronic kidney disease, stage 3 unspecified; K21.9 Gastro-esophageal reflux disease without esophagitis; J45.909 Unspecified asthma, uncomplicated; F17.210 Nicotine dependence, cigarettes, uncomplicated; I42.7 Cardiomyopathy due to drug and external agent; T43.625A Adverse effect of amphetamines, initial encounter; I42.8 Other cardiomyopathies; Z91.19 Patient's noncompliance with other medical treatment and regimen; Z91.14 Patient's other noncompliance with medication regimen; Z88.0 Allergy status to penicillin; Z79.899 Other long term (current) drug therapy; Z95.0 Presence of cardiac pacemaker
CPT/HCPCS: 36415; 36600; 71045; 80048; 80053; 82550; 82553; 82805; 83690; 83735; 83880; 84484; 85025; 93005; 93798; 94640; 94660; J1650; J1940; J7620

== ENCOUNTER 2021-06-04 01:19 | Inpatient (IN) | payer SELFPAY ==
[2021-06-04] MEDS ORDERED: Nitroglycerin 50 MG/250 ML BOT 0 ML ONE (01:32)
[2021-06-04] MEDS ORDERED: Furosemide 40 MG/4 ML VIAL ONE (01:32)
[2021-06-04] MEDS ORDERED: Nitroglycerin 50 MG/250 ML BOT 250 ML ONE (01:33)
[2021-06-04 01:54] LABS: #Basophils 0.1 thou/uL (0.0-0.2); #Eosinphils 0.2 thou/uL (0.0-0.7); #Lymphocytes 2.6 thou/uL (1.20-3.40); #Monocytes 0.9 thou/uL (0.11-0.59); #Neutrophils 10.3 thou/uL (1.40-6.50); %Basophils 0.4 % (0.0-1.0); %Eosinophils 1.8 % (0.0-10.0); %Lymphocytes 18.4 % (21.0-51.0); %Monocytes 6.5 % (0.0-10.0); Hemoglobin 15.1 g/dL (14.0-18.0); Mean Corpuscular HGB CONC 32.7 g/dL (32.0-36.0); Mean Corpuscular Hemoglobin 29.6 pg (27.0-31.0); Mean Corpuscular Volume 90.6 fL (78.0-98.0); Mean Platelet Volume 8.9 fL (7.4-10.4); Platelet Count 220 thou/uL (130-400); RBC Distribution Width 14.2 % (11.5-14.5); White Blood Cell (WBC) Count 14.1 thou/uL (4.8-10.8)
[2021-06-04 02:37] LABS: CKMB 3.5 ng/mL (0-6.6)
[2021-06-04 02:44] LABS: ALT (SGPT) 13 U/L (8-55); AST (SGOT) 25 U/L (5-34); Albumin 3.8 g/dL (3.5-5.0); Alkaline Phosphatase 71 U/L (40-110); Anion Gap 13 mmol/L (10-20); BUN (Urea Nitrogen) 16 mg/dL (8.9-20.6); Calc. Creatinine Clearance 0 mL/min (70-130); Calcium 8.8 mg/dL (7.8-10.44); Carbon Dioxide 20 mmol/L (22-29); Chloride 106 mmol/L (98-107); Globulin 3.8 g/dL (2.4-3.5); Glucose 106 mg/dL (70-105); Potassium 3.6 mmol/L (3.5-5.1); Protein, Total 7.6 g/dL (6.0-8.3); Sodium 135 mmol/L (136-145)
[2021-06-04] MEDS ORDERED: Ondansetron PF 4 MG/2 ML Vial IVP PRN (03:23)
[2021-06-04] MEDS ORDERED: hydrALAZINE 20 MG/ML VIAL SLOW IVP PRN (03:25)
[2021-06-04 04:24] LABS: Magnesium 1.9 mg/dL (1.6-2.6)
[2021-06-04 05:21] LABS: Amphetamine Detected (NotDetected); Barbiturates Screen Not Detected (NotDetected); Benzodiazepine Screen Not Detected (NotDetected); Cocaine Metabolite Screen Not Detected (NotDetected); Methadone Not Detected (NotDetected); Methamphetamine Detected (NotDetected); Opiate Screen Detected (NotDetected); Oxycodone Screen Not Detected (NotDetected); Phencyclidine (PCP) Not Detected (NotDetected); THC/Cannabinoid Screen Not Detected (NotDetected); Tricyclic Screen Not Detected (NotDetected)
[2021-06-04 05:25] LABS: #Basophils 0.1 thou/uL (0.0-0.2); #Eosinphils 0.2 thou/uL (0.0-0.7); #Lymphocytes 2.7 thou/uL (1.20-3.40); #Monocytes 0.8 thou/uL (0.11-0.59); #Neutrophils 9.2 thou/uL (1.40-6.50); %Basophils 0.5 % (0.0-1.0); %Eosinophils 1.8 % (0.0-10.0); %Lymphocytes 20.8 % (21.0-51.0); %Monocytes 6.4 % (0.0-10.0); %Neutrophils 70.5 % (42.0-75.0); Hemoglobin 15.3 g/dL (14.0-18.0); Mean Corpuscular HGB CONC 32.5 g/dL (32.0-36.0); Mean Corpuscular Hemoglobin 29.6 pg (27.0-31.0); Mean Platelet Volume 8.7 fL (7.4-10.4); Platelet Count 238 thou/uL (130-400); RBC Distribution Width 14.2 % (11.5-14.5); Red Blood Cell (RBC) Count 5.17 mill/uL (4.70-6.10)
[2021-06-04 05:51] LABS: Anion Gap 14 mmol/L (10-20); BUN (Urea Nitrogen) 17 mg/dL (8.9-20.6); Calc. Creatinine Clearance 0 mL/min (70-130); Carbon Dioxide 23 mmol/L (22-29); Chloride 105 mmol/L (98-107); Glucose 96 mg/dL (70-105); Potassium 3.1 mmol/L (3.5-5.1); Sodium 139 mmol/L (136-145)
[2021-06-04] MEDS ORDERED: Nitroglycerin 50 MG/250 ML BOT 250 ML IVPB SCH (07:00)
[2021-06-04 07:38] VITALS: BMI 43.6
[2021-06-04 08:19] LABS: Troponin I 0.057 ng/mL (< 0.028)
[2021-06-04] MEDS ORDERED: Enoxaparin Sodium 40 MG/0.4 ML SYRINGE SC SCH (09:00)
[2021-06-04] MEDS: Famotidine 20 MG TAB PO SCH ×2 (09:13→20:18)
[2021-06-04] MEDS ORDERED: Potassium Chloride 20 MEQ TAB PO SCH (10:00)
[2021-06-04] MEDS: Acetaminophen 325 MG TAB PO PRN ×2 (11:00→17:24)
[2021-06-04 11:09] LABS: SARS-CoV-2 NAA Rapid Test Not Detected (NotDetected)
[2021-06-04 13:42] LABS: Actual Bicarbonate (HCO3a) 25.4 mEq/L (22-28); Base Excess (BEa) 1.6 mEq/L (-2.0 to +3.0); CO2 Tension 37.6 mmHg (35.0-45.0); Calcium, Ionized (arterial) 1.12 mmol/L (1.12-1.30); Carboxyhemoglobin (COHb) 1.2 gm% (0.0-3.0); Hemoglobin (Hb) 14.9 g/dL (14.0-18.0); Potassium - ABG Lab 3.45 mmol/L (3.70-5.30); pH, Arterial 7.45 (7.35-7.45)
[2021-06-04 13:44] LABS: O2 Tension (PaO2), arterial 51.9 mmHg (80.0-100.0); Puncture Site LRA
[2021-06-04] MEDS: Furosemide 40 MG/4 ML VIAL SLOW IVP SCH (14:31)
[2021-06-04] MEDS: Carvedilol 6.25 MG TAB PO SCH (17:25)
[2021-06-04] MEDS: Lisinopril 10 MG TAB PO SCH (20:18)
[2021-06-04] MEDS: Enoxaparin Sodium 40 MG/0.4 ML SYRINGE SC SCH (20:33)
[2021-06-04] MEDS ORDERED: Melatonin 3 MG TAB PO SCH (21:00)
[2021-06-05 03:34] LABS: #Eosinphils 0.3 thou/uL (0.0-0.7); #Monocytes 1.1 thou/uL (0.11-0.59); #Neutrophils 10.7 thou/uL (1.40-6.50); %Monocytes 7.9 % (0.0-10.0); %Neutrophils 76.1 % (42.0-75.0); Hemoglobin 14.8 g/dL (14.0-18.0); Mean Corpuscular HGB CONC 33.2 g/dL (32.0-36.0); Mean Corpuscular Hemoglobin 30.1 pg (27.0-31.0); Mean Corpuscular Volume 90.9 fL (78.0-98.0); Mean Platelet Volume 8.8 fL (7.4-10.4); Platelet Count 236 thou/uL (130-400); RBC Distribution Width 14.1 % (11.5-14.5); Red Blood Cell (RBC) Count 4.92 mill/uL (4.70-6.10)
[2021-06-05 03:52] LABS: Anion Gap 13 mmol/L (10-20); BUN (Urea Nitrogen) 18 mg/dL (8.9-20.6); Calc. Creatinine Clearance 138 mL/min (70-130); Calcium 8.9 mg/dL (7.8-10.44); Carbon Dioxide 24 mmol/L (22-29); Chloride 104 mmol/L (98-107); Glucose 98 mg/dL (70-105); Magnesium 1.9 mg/dL (1.6-2.6); Potassium 3.8 mmol/L (3.5-5.1); Sodium 137 mmol/L (136-145)
[2021-06-05] MEDS: Furosemide 40 MG/4 ML VIAL SLOW IVP SCH ×2 (05:15→13:15)
[2021-06-05] MEDS: Carvedilol 6.25 MG TAB PO SCH ×2 (06:27→17:33)
[2021-06-05] MEDS: Potassium Chloride 20 MEQ TAB PO SCH (10:13)
[2021-06-05] MEDS: Enoxaparin Sodium 40 MG/0.4 ML SYRINGE SC SCH ×2 (10:13→20:57)
[2021-06-05] MEDS: Famotidine 20 MG TAB PO SCH ×2 (10:13→20:57)
[2021-06-05] MEDS: Lisinopril 10 MG TAB PO SCH ×2 (10:14→20:56)
[2021-06-05] MEDS ORDERED: FLU VACC QS2021-22(6MOS UP)/PF 60 MCG/0.5 ML SYRINGE IM ONE (12:00)
[2021-06-06 04:35] LABS: #Eosinphils 0.5 thou/uL (0.0-0.7); #Lymphocytes 3.1 thou/uL (1.20-3.40); #Monocytes 1.1 thou/uL (0.11-0.59); %Basophils 0.3 % (0.0-1.0); %Eosinophils 3.1 % (0.0-10.0); %Lymphocytes 21.1 % (21.0-51.0); %Monocytes 7.4 % (0.0-10.0); %Neutrophils 68.1 % (42.0-75.0); Hemoglobin 15.8 g/dL (14.0-18.0); Mean Corpuscular HGB CONC 33.5 g/dL (32.0-36.0); Mean Corpuscular Hemoglobin 30.3 pg (27.0-31.0); Mean Corpuscular Volume 90.4 fL (78.0-98.0); Mean Platelet Volume 8.5 fL (7.4-10.4); Platelet Count 252 thou/uL (130-400); RBC Distribution Width 14.3 % (11.5-14.5); Red Blood Cell (RBC) Count 5.21 mill/uL (4.70-6.10); White Blood Cell (WBC) Count 14.7 thou/uL (4.8-10.8)
[2021-06-06 04:58] LABS: Anion Gap 14 mmol/L (10-20); BUN (Urea Nitrogen) 22 mg/dL (8.9-20.6); Calc. Creatinine Clearance 139 mL/min (70-130); Calcium 9.3 mg/dL (7.8-10.44); Carbon Dioxide 22 mmol/L (22-29); Chloride 104 mmol/L (98-107); Glucose 96 mg/dL (70-105); Potassium 3.9 mmol/L (3.5-5.1); Sodium 136 mmol/L (136-145)
[2021-06-06] MEDS: Furosemide 40 MG/4 ML VIAL SLOW IVP SCH (06:21)
[2021-06-06] MEDS: Enoxaparin Sodium 40 MG/0.4 ML SYRINGE SC SCH (09:46)
[2021-06-06] MEDS: Famotidine 20 MG TAB PO SCH (09:47)
[2021-06-06] MEDS: Lisinopril 10 MG TAB PO SCH (09:47)
[2021-06-06] MEDS: Potassium Chloride 20 MEQ TAB PO SCH (09:47)
[2021-06-06] MEDS: Carvedilol 6.25 MG TAB PO SCH (09:47)
[2021-06-06 15:36] VITALS: BP 139/91; TEMP 97.7
[2021-06-07] MEDS ORDERED: Furosemide 40 MG TAB PO SCH (07:30)
== END 2021-06-06 16:15 | disposition home or self-care (01) | DRG 291 ==
LOC: ERS 01:19 → CCU 03:17 → 2NO 06-05 17:49
PROVIDERS: ADMIT Internal Medicine; ATTEND Internal Medicine
PROC: 5A09357 Assistance with Respiratory Ventilation, Less than 24 Consecutive Hours, Continuous Positive Airway Pressure (ICD-10-PCS; principal; 2021-06-04)
DX: I11.0 Hypertensive heart disease with heart failure (principal); I50.23 Acute on chronic systolic (congestive) heart failure; J96.21 Acute and chronic respiratory failure with hypoxia; I16.1 Hypertensive emergency; I24.8 Other forms of acute ischemic heart disease; Z68.41 Body mass index [BMI] 40.0-44.9, adult; I42.8 Other cardiomyopathies; J44.9 Chronic obstructive pulmonary disease, unspecified; J45.909 Unspecified asthma, uncomplicated; F32.A Depression, unspecified; F17.210 Nicotine dependence, cigarettes, uncomplicated; I16.0 Hypertensive urgency; D72.829 Elevated white blood cell count, unspecified; F15.11 Other stimulant abuse, in remission; E66.01 Morbid (severe) obesity due to excess calories; G47.33 Obstructive sleep apnea (adult) (pediatric); Z20.822 Contact with and (suspected) exposure to COVID-19; Z88.0 Allergy status to penicillin; Z95.810 Presence of automatic (implantable) cardiac defibrillator; Z79.51 Long term (current) use of inhaled steroids; Z79.899 Other long term (current) drug therapy
CPT/HCPCS: 36415; 36600; 71045; 80048; 80053; 80306; 82553; 82805; 83735; 83880; 84484; 85025; 90471; 90686; 90732; 93005; 93306; 94660; G0008; G0009; J0360; J1650; J1940; U0002

== ENCOUNTER 2021-08-11 04:40 | Inpatient (IN) | payer SELFPAY ==
[2021-08-11 05:30] LABS: #Eosinphils 0.1 thou/uL (0.0-0.7); #Lymphocytes 1.6 thou/uL (1.20-3.40); #Monocytes 0.8 thou/uL (0.11-0.59); #Neutrophils 9.8 thou/uL (1.40-6.50); %Lymphocytes 13.3 % (21.0-51.0); %Monocytes 6.2 % (0.0-10.0); %Neutrophils 79.5 % (42.0-75.0); Hemoglobin 15.8 g/dL (14.0-18.0); Mean Corpuscular HGB CONC 31.8 g/dL (32.0-36.0); Mean Corpuscular Hemoglobin 29.1 pg (27.0-31.0); Mean Corpuscular Volume 91.6 fL (78.0-98.0); Mean Platelet Volume 8.5 fL (7.4-10.4); Platelet Count 197 thou/uL (130-400); Red Blood Cell (RBC) Count 5.42 mill/uL (4.70-6.10); White Blood Cell (WBC) Count 12.3 thou/uL (4.8-10.8)
[2021-08-11 05:54] LABS: ALT (SGPT) 18 U/L (8-55); AST (SGOT) 22 U/L (5-34); Albumin 3.7 g/dL (3.5-5.0); Alkaline Phosphatase 98 U/L (40-110); Anion Gap 13 mmol/L (10-20); BUN (Urea Nitrogen) 25 mg/dL (8.9-20.6); Calc. Creatinine Clearance 0 mL/min (70-130); Carbon Dioxide 20 mmol/L (22-29); Chloride 107 mmol/L (98-107); Globulin 2.9 g/dL (2.4-3.5); Glucose 115 mg/dL (70-105); Potassium 4.4 mmol/L (3.5-5.1); Protein, Total 6.6 g/dL (6.0-8.3); Sodium 136 mmol/L (136-145)
[2021-08-11] MEDS ORDERED: Lorazepam 2 MG/ML VIAL ONE (06:11)
[2021-08-11] MEDS ORDERED: Aspirin 325 MG TAB ONE (06:11)
[2021-08-11 06:16] LABS: CKMB 2.7 ng/mL (0-6.6)
[2021-08-11] MEDS ORDERED: Furosemide 40 MG/4 ML VIAL ONE (06:50)
[2021-08-11 06:58] LABS: Actual Bicarbonate (HCO3a) 18.7 mEq/L (22-28); Analyzer IN Cardio ER; Base Excess (BEa) -5.9 mEq/L (-2.0 to +3.0); CO2 Tension 34.8 mmHg (35.0-45.0); Calcium, Ionized (arterial) 1.18 mmol/L (1.12-1.30); Carboxyhemoglobin (COHb) 1.1 gm% (0.0-3.0); Hemoglobin (Hb) 16.7 g/dL (14.0-18.0); O2 Tension (PaO2), arterial 103.8 mmHg (80.0-100.0); Potassium - ABG Lab 4.73 mmol/L (3.70-5.30); pH, Arterial 7.35 (7.35-7.45)
[2021-08-11 06:59] LABS: Puncture Site RBA
[2021-08-11 07:34] LABS: Bilirubin Negative (Negative); Blood, Urine Negative (Negative); Clarity Clear (Clear); Glucose, Urine (Dipstick) Normal (Negative); Ketone, Urine Negative (Negative); Leukocyte Negative Leu/uL (Negative); Nitrite Negative (Negative); Protein, Urine (Dipstick) 20 mg/dL (Neg-Trace); Specific Gravity, Urine 1.017 (1.002-1.036); Urobilinogen 3 mg/dL (Less than 2); pH, Urine 5.5 (5.0-9.0)
[2021-08-11 07:40] LABS: Amphetamine Detected (NotDetected); Barbiturates Screen Not Detected (NotDetected); Benzodiazepine Screen Not Detected (NotDetected); Cocaine Metabolite Screen Not Detected (NotDetected); Methadone Not Detected (NotDetected); Methamphetamine Detected (NotDetected); Opiate Screen Not Detected (NotDetected); Oxycodone Screen Not Detected (NotDetected); Phencyclidine (PCP) Not Detected (NotDetected); THC/Cannabinoid Screen Not Detected (NotDetected); Tricyclic Screen Not Detected (NotDetected)
[2021-08-11 08:21] VITALS: BMI 43.0
[2021-08-11] MEDS ORDERED: Acetaminophen 325 MG TAB PO PRN (08:40)
[2021-08-11] MEDS ORDERED: Ondansetron ODT 4 MG TAB PO PRN (08:40)
[2021-08-11] MEDS ORDERED: Calcium Carbonate 500 MG ChewTAB PO PRN (08:40)
[2021-08-11] MEDS ORDERED: hydrALAZINE 20 MG/ML VIAL SLOW IVP PRN (08:50)
[2021-08-11 08:54] LABS: SARS-CoV-2 NAA Rapid Test Not Detected (NotDetected)
[2021-08-11 08:56] LABS: Magnesium 1.9 mg/dL (1.6-2.6); Phosphorus 2.9 mg/dL (2.3-4.7)
[2021-08-11] MEDS: Famotidine 20 MG TAB PO SCH ×2 (08:57→21:33)
[2021-08-11] MEDS: Lisinopril 20 MG TAB PO SCH (08:57)
[2021-08-11] MEDS ORDERED: Aspirin 81 mg Enteric Coated Tablet PO SCH (09:00)
[2021-08-11] MEDS ORDERED: Furosemide 40 MG/4 ML VIAL SLOW IVP SCH (09:30)
[2021-08-11] MEDS: Famotidine/PF 20 mg/2ml Vial SLOW IVP SCH ×2 (09:52→21:35)
[2021-08-11 09:56] LABS: Troponin I 0.026 ng/mL (< 0.028)
[2021-08-11 11:53] LABS: #Lymphocytes 0.7 thou/uL (1.20-3.40); #Monocytes 0.1 thou/uL (0.11-0.59); #Neutrophils 7.7 thou/uL (1.40-6.50); %Basophils 0.3 % (0.0-1.0); %Eosinophils 0.2 % (0.0-10.0); %Lymphocytes 8.4 % (21.0-51.0); %Monocytes 1.2 % (0.0-10.0); Hemoglobin 17.1 g/dL (14.0-18.0); Mean Corpuscular HGB CONC 31.5 g/dL (32.0-36.0); Mean Corpuscular Hemoglobin 28.9 pg (27.0-31.0); Mean Corpuscular Volume 91.6 fL (78.0-98.0); Mean Platelet Volume 8.8 fL (7.4-10.4); Platelet Count 201 thou/uL (130-400); RBC Distribution Width 14.1 % (11.5-14.5); Red Blood Cell (RBC) Count 5.93 mill/uL (4.70-6.10); White Blood Cell (WBC) Count 8.5 thou/uL (4.8-10.8)
[2021-08-11 12:12] LABS: Anion Gap 15 mmol/L (10-20); BUN (Urea Nitrogen) 22 mg/dL (8.9-20.6); Calc. Creatinine Clearance 156 mL/min (70-130); Carbon Dioxide 18 mmol/L (22-29); Chloride 106 mmol/L (98-107); Glucose 142 mg/dL (70-105); Potassium 3.9 mmol/L (3.5-5.1); Sodium 135 mmol/L (136-145); Troponin I 0.025 ng/mL (< 0.028)
[2021-08-11] MEDS: Furosemide 40 MG/4 ML VIAL SLOW IVP SCH ×2 (14:05→21:34)
[2021-08-11] MEDS: Nitroglycerin 2% Ointment 1 INCH/1 GM Packet TOP SCH ×2 (14:05→21:34)
[2021-08-11] MEDS: Carvedilol 6.25 MG TAB PO SCH (17:21)
[2021-08-11] MEDS ORDERED: Enoxaparin Sodium 40 MG/0.4 ML SYRINGE SC SCH (21:00)
[2021-08-12 04:27] LABS: Band 7 % (5-11); Hemoglobin 16.7 g/dL (14.0-18.0); Lymphocytes 9 % (21-51); MDiff Complete? YES; Mean Corpuscular HGB CONC 32.2 g/dL (32.0-36.0); Mean Corpuscular Hemoglobin 29.2 pg (27.0-31.0); Mean Corpuscular Volume 90.5 fL (78.0-98.0); Mean Platelet Volume 8.8 fL (7.4-10.4); Monocytes 4 % (0-10); Neutrophil 80 % (42-75); Platelet Count 208 thou/uL (130-400); Platelet Morphology Comment Appears Adequate; RBC Distribution Width 13.6 % (11.5-14.5); RBC Morphology Normal; Red Blood Cell (RBC) Count 5.72 mill/uL (4.70-6.10); White Blood Cell (WBC) Count 22.6 thou/uL (4.8-10.8)
[2021-08-12 04:35] LABS: ALT (SGPT) 13 U/L (8-55); AST (SGOT) 19 U/L (5-34); Albumin 3.5 g/dL (3.5-5.0); Alkaline Phosphatase 97 U/L (40-110); Anion Gap 14 mmol/L (10-20); BUN (Urea Nitrogen) 24 mg/dL (8.9-20.6); Bilirubin, Total 1.7 mg/dL (0.2-1.2); Calc. Creatinine Clearance 145 mL/min (70-130); Calcium 8.9 mg/dL (7.8-10.44); Carbon Dioxide 24 mmol/L (22-29); Chloride 104 mmol/L (98-107); Globulin 3.2 g/dL (2.4-3.5); Glucose 124 mg/dL (70-105); Magnesium 1.9 mg/dL (1.6-2.6); Phosphorus 3.6 mg/dL (2.3-4.7); Potassium 4.1 mmol/L (3.5-5.1); Protein, Total 6.7 g/dL (6.0-8.3); Sodium 138 mmol/L (136-145)
[2021-08-12] MEDS: Nitroglycerin 2% Ointment 1 INCH/1 GM Packet TOP SCH ×2 (05:59→13:57)
[2021-08-12] MEDS: Furosemide 40 MG/4 ML VIAL SLOW IVP SCH ×3 (05:59→21:08)
[2021-08-12 08:05] LABS: #Lymphocytes 1.8 thou/uL (1.20-3.40); #Monocytes 2.1 thou/uL (0.11-0.59); #Neutrophils 23.2 thou/uL (1.40-6.50); %Eosinophils 0.1 % (0.0-10.0); %Lymphocytes 6.6 % (21.0-51.0); %Monocytes 7.6 % (0.0-10.0); %Neutrophils 85.7 % (42.0-75.0); Hemoglobin 17.1 g/dL (14.0-18.0); Mean Corpuscular HGB CONC 31.7 g/dL (32.0-36.0); Mean Corpuscular Hemoglobin 28.8 pg (27.0-31.0); Mean Corpuscular Volume 90.8 fL (78.0-98.0); Mean Platelet Volume 9.1 fL (7.4-10.4); Platelet Count 207 thou/uL (130-400); RBC Distribution Width 13.7 % (11.5-14.5); Red Blood Cell (RBC) Count 5.94 mill/uL (4.70-6.10)
[2021-08-12] MEDS: Famotidine/PF 20 mg/2ml Vial SLOW IVP SCH ×2 (09:17→19:52)
[2021-08-12] MEDS: Famotidine 20 MG TAB PO SCH ×2 (09:17→21:08)
[2021-08-12] MEDS: Aspirin 81 mg Enteric Coated Tablet PO SCH (09:17)
[2021-08-12] MEDS: Carvedilol 6.25 MG TAB PO SCH ×2 (09:17→16:57)
[2021-08-12] MEDS: Lisinopril 20 MG TAB PO SCH (09:17)
[2021-08-13 04:49] LABS: #Basophils 0.1 thou/uL (0.0-0.2); #Eosinphils 0.2 thou/uL (0.0-0.7); #Monocytes 1.6 thou/uL (0.11-0.59); %Basophils 0.6 % (0.0-1.0); %Eosinophils 0.8 % (0.0-10.0); %Lymphocytes 16.7 % (21.0-51.0); Hemoglobin 17.1 g/dL (14.0-18.0); Mean Corpuscular HGB CONC 30.8 g/dL (32.0-36.0); Mean Corpuscular Hemoglobin 28.5 pg (27.0-31.0); Mean Corpuscular Volume 92.4 fL (78.0-98.0); Mean Platelet Volume 8.9 fL (7.4-10.4); Platelet Count 219 thou/uL (130-400); RBC Distribution Width 14.1 % (11.5-14.5); Red Blood Cell (RBC) Count 6.01 mill/uL (4.70-6.10); White Blood Cell (WBC) Count 17.7 thou/uL (4.8-10.8)
[2021-08-13] MEDS: Furosemide 40 MG/4 ML VIAL SLOW IVP SCH ×2 (05:39→13:48)
[2021-08-13] MEDS: Carvedilol 6.25 MG TAB PO SCH ×2 (08:40→18:14)
[2021-08-13] MEDS: Famotidine/PF 20 mg/2ml Vial SLOW IVP SCH (08:40)
[2021-08-13] MEDS: Famotidine 20 MG TAB PO SCH (08:42)
[2021-08-13] MEDS: Aspirin 81 mg Enteric Coated Tablet PO SCH (08:42)
[2021-08-13] MEDS: Lisinopril 20 MG TAB PO SCH (08:43)
[2021-08-13 16:34] VITALS: TEMP 98.2
[2021-08-13 18:15] VITALS: BP 103/60
== END 2021-08-13 18:20 | disposition home or self-care (01) | DRG 291 ==
LOC: ERS 04:40 → IMCU/EMU 06:55 → 2NO 08-12 12:52
PROVIDERS: ADMIT Internal Medicine; ATTEND Internal Medicine
DX: I13.0 Hypertensive heart and chronic kidney disease with heart failure and stage 1 through stage 4 chronic kidney disease, or unspecified chronic kidney disease (principal); I50.23 Acute on chronic systolic (congestive) heart failure; J96.01 Acute respiratory failure with hypoxia; G92.8 Other toxic encephalopathy; Z68.41 Body mass index [BMI] 40.0-44.9, adult; I42.7 Cardiomyopathy due to drug and external agent; Z51.5 Encounter for palliative care; D72.829 Elevated white blood cell count, unspecified; Z20.822 Contact with and (suspected) exposure to COVID-19; F32.A Depression, unspecified; N18.30 Chronic kidney disease, stage 3 unspecified; G47.33 Obstructive sleep apnea (adult) (pediatric); E66.01 Morbid (severe) obesity due to excess calories; I16.0 Hypertensive urgency; J45.909 Unspecified asthma, uncomplicated; F17.210 Nicotine dependence, cigarettes, uncomplicated; F41.9 Anxiety disorder, unspecified; F15.11 Other stimulant abuse, in remission; Z28.311 Partially vaccinated for COVID-19; Z95.5 Presence of coronary angioplasty implant and graft; Z88.0 Allergy status to penicillin; Z82.3 Family history of stroke; Z82.49 Family history of ischemic heart disease and other diseases of the circulatory system; Z83.3 Family history of diabetes mellitus; Z79.899 Other long term (current) drug therapy; Z79.51 Long term (current) use of inhaled steroids; Z79.82 Long term (current) use of aspirin; Z95.810 Presence of automatic (implantable) cardiac defibrillator; Z91.14 Patient's other noncompliance with medication regimen
CPT/HCPCS: 36415; 36416; 36600; 51702; 70450; 71045; 74018; 80053; 80306; 81003; 82553; 82805; 83690; 83735; 83880; 84100; 84484; 85025; 86140; 87040; 87086; 93005; 93798; 94640; 94760; 96374; 96375; J1940; J2060; J7620; S0028; U0002

== ENCOUNTER 2021-09-04 14:07 | Inpatient (IN) | payer OTHER, SELFPAY ==
[2021-09-04] MEDS ORDERED: Furosemide 40 MG/4 ML VIAL ONE (14:35)
[2021-09-04] MEDS ORDERED: Nitroglycerin 0.4 MG TAB 1 EACH ONE ×2 (14:35→16:40)
[2021-09-04 14:44] LABS: #Basophils 0.1 thou/uL (0.0-0.2); #Eosinphils 0.1 thou/uL (0.0-0.7); #Lymphocytes 2.1 thou/uL (1.20-3.40); #Monocytes 1.1 thou/uL (0.11-0.59); #Neutrophils 8.5 thou/uL (1.40-6.50); %Basophils 1.1 % (0.0-1.0); %Eosinophils 1.2 % (0.0-10.0); %Lymphocytes 17.5 % (21.0-51.0); %Neutrophils 71.2 % (42.0-75.0); Hemoglobin 15.4 g/dL (14.0-18.0); Mean Corpuscular HGB CONC 31.6 g/dL (32.0-36.0); Mean Corpuscular Hemoglobin 28.1 pg (27.0-31.0); Mean Corpuscular Volume 88.9 fL (78.0-98.0); Mean Platelet Volume 8.8 fL (7.4-10.4); Platelet Count 209 thou/uL (130-400); RBC Distribution Width 14.4 % (11.5-14.5); Red Blood Cell (RBC) Count 5.47 mill/uL (4.70-6.10)
[2021-09-04 15:04] LABS: ALT (SGPT) 13 U/L (8-55); AST (SGOT) 20 U/L (5-34); Albumin 3.6 g/dL (3.5-5.0); Alkaline Phosphatase 96 U/L (40-110); Anion Gap 9 mmol/L (10-20); BUN (Urea Nitrogen) 16 mg/dL (8.9-20.6); Bilirubin, Total 1.3 mg/dL (0.2-1.2); Calc. Creatinine Clearance 0 mL/min (70-130); Calcium 9.1 mg/dL (7.8-10.44); Carbon Dioxide 22 mmol/L (22-29); Chloride 110 mmol/L (98-107); Globulin 3.4 g/dL (2.4-3.5); Glucose 82 mg/dL (70-105); Lipase 18 U/L (8-78); Potassium 4.3 mmol/L (3.5-5.1); Sodium 137 mmol/L (136-145)
[2021-09-04 15:25] LABS: CKMB 2.2 ng/mL (0-6.6)
[2021-09-04] MEDS ORDERED: Ketorolac Tromethamine 30 MG/ML VIAL ONE (16:40)
[2021-09-04] MEDS ORDERED: Ondansetron PF 4 MG/2 ML Vial IVP PRN (17:47)
[2021-09-04] MEDS ORDERED: Acetaminophen 325 MG TAB PO PRN (17:47)
[2021-09-04] MEDS ORDERED: hydrALAZINE 20 MG/ML VIAL SLOW IVP PRN (17:52)
[2021-09-04] MEDS ORDERED: Nitroglycerin 0.4 MG TAB (25 Tab Bottle) SL PRN (17:52)
[2021-09-04] MEDS ORDERED: Melatonin 3 MG TAB PO PRN (17:52)
[2021-09-04] MEDS ORDERED: methylPREDNISolone Sod Succ/PF 125 MG/2 ML VIAL IVP SCH (18:00)
[2021-09-04 18:15] LABS: Troponin I 0.034 ng/mL (< 0.028)
[2021-09-04] MEDS ORDERED: Aspirin 81 mg Enteric Coated Tablet PO SCH (18:30)
[2021-09-04] MEDS ORDERED: Morphine 2 MG/ML VIAL SLOW IVP PRN ×2 (18:41→18:48)
[2021-09-04 19:34] VITALS: BMI 42.3
[2021-09-04] MEDS ORDERED: Pantoprazole 40 MG VIAL IVP SCH (20:00)
[2021-09-04] MEDS: Nicotine 21 MG PATCH TD SCH (20:29)
[2021-09-04] MEDS: Carvedilol 6.25 MG TAB PO SCH (20:30)
[2021-09-04] MEDS: Lisinopril 20 MG TAB PO SCH (20:30)
[2021-09-04 21:03] LABS: Troponin I 0.036 ng/mL (< 0.028)
[2021-09-04] MEDS ORDERED: Furosemide 20 MG/2 ML VIAL SLOW IVP SCH (22:00)
[2021-09-04] MEDS ORDERED: Magnesium Citrate 300 ML BOT PO SCH (23:00)
[2021-09-04 23:21] LABS: Amphetamine Detected (NotDetected); Barbiturates Screen Not Detected (NotDetected); Benzodiazepine Screen Not Detected (NotDetected); Cocaine Metabolite Screen Not Detected (NotDetected); Methadone Not Detected (NotDetected); Methamphetamine Detected (NotDetected); Opiate Screen Not Detected (NotDetected); Oxycodone Screen Not Detected (NotDetected); Phencyclidine (PCP) Not Detected (NotDetected); THC/Cannabinoid Screen Not Detected (NotDetected); Tricyclic Screen Not Detected (NotDetected)
[2021-09-05 00:20] LABS: SARS-CoV-2 PCR by NAA Not Detected (NotDetected)
[2021-09-05 05:05] LABS: #Lymphocytes 0.8 thou/uL (1.20-3.40); #Monocytes 0.1 thou/uL (0.11-0.59); #Neutrophils 9.5 thou/uL (1.40-6.50); %Basophils 0.1 % (0.0-1.0); %Eosinophils 0.1 % (0.0-10.0); %Monocytes 0.9 % (0.0-10.0); %Neutrophils 90.9 % (42.0-75.0); Hemoglobin 15.3 g/dL (14.0-18.0); Mean Corpuscular HGB CONC 31.8 g/dL (32.0-36.0); Mean Corpuscular Hemoglobin 28.4 pg (27.0-31.0); Mean Corpuscular Volume 89.3 fL (78.0-98.0); Platelet Count 188 thou/uL (130-400); RBC Distribution Width 14.2 % (11.5-14.5); White Blood Cell (WBC) Count 10.4 thou/uL (4.8-10.8)
[2021-09-05] MEDS: Furosemide 40 MG/4 ML VIAL SLOW IVP SCH ×2 (05:24→17:12)
[2021-09-05 05:32] LABS: ALT (SGPT) 14 U/L (8-55); AST (SGOT) 20 U/L (5-34); Albumin 3.6 g/dL (3.5-5.0); Alkaline Phosphatase 95 U/L (40-110); Anion Gap 13 mmol/L (10-20); BUN (Urea Nitrogen) 23 mg/dL (8.9-20.6); Bilirubin, Total 1.6 mg/dL (0.2-1.2); Calc. Creatinine Clearance 126 mL/min (70-130); Calcium 9.4 mg/dL (7.8-10.44); Carbon Dioxide 20 mmol/L (22-29); Chloride 105 mmol/L (98-107); Globulin 3.4 g/dL (2.4-3.5); Glucose 149 mg/dL (70-105); Potassium 4.3 mmol/L (3.5-5.1); Sodium 134 mmol/L (136-145)
[2021-09-05] MEDS ORDERED: methylPREDNISolone Sod Succ 40 MG VIAL IVP SCH (06:00)
[2021-09-05] MEDS: Spironolactone 25 MG TAB PO SCH (07:34)
[2021-09-05] MEDS: Carvedilol 6.25 MG TAB PO SCH ×2 (07:34→21:07)
[2021-09-05] MEDS: Lisinopril 20 MG TAB PO SCH ×2 (07:34→21:07)
[2021-09-05] MEDS: Pantoprazole 40 MG VIAL IVP SCH (07:35)
[2021-09-05] MEDS: Nicotine 21 MG PATCH TD SCH (17:12)
[2021-09-06 05:06] LABS: Anion Gap 11 mmol/L (10-20); BUN (Urea Nitrogen) 26 mg/dL (8.9-20.6); Calc. Creatinine Clearance 145 mL/min (70-130); Calcium 8.7 mg/dL (7.8-10.44); Carbon Dioxide 22 mmol/L (22-29); Chloride 108 mmol/L (98-107); Glucose 147 mg/dL (70-105); Potassium 4.4 mmol/L (3.5-5.1); Sodium 137 mmol/L (136-145)
[2021-09-06] MEDS: Furosemide 40 MG/4 ML VIAL SLOW IVP SCH (05:12)
[2021-09-06] MEDS: Spironolactone 25 MG TAB PO SCH (08:58)
[2021-09-06] MEDS: Carvedilol 6.25 MG TAB PO SCH (08:59)
[2021-09-06] MEDS: Pantoprazole 40 MG VIAL IVP SCH (08:59)
[2021-09-06] MEDS: Lisinopril 20 MG TAB PO SCH (08:59)
[2021-09-06] MEDS ORDERED: predniSONE 20 MG TAB PO SCH (12:30)
[2021-09-06] MEDS ORDERED: Furosemide 40 MG TAB PO SCH (14:00)
[2021-09-06 15:36] VITALS: BP 126/91; TEMP 97.7
[2021-09-07] MEDS ORDERED: predniSONE 20 MG TAB PO SCH (08:00)
== END 2021-09-06 17:32 | DRG 280 ==
LOC: ERS 14:07 → EEVIPCON 17:16 → 2NO 17:16
PROVIDERS: ADMIT Internal Medicine; ATTEND Internal Medicine
DX: I11.0 Hypertensive heart disease with heart failure (principal); I50.23 Acute on chronic systolic (congestive) heart failure; I21.A1 Myocardial infarction type 2; J44.1 Chronic obstructive pulmonary disease with (acute) exacerbation; N17.9 Acute kidney failure, unspecified; G47.33 Obstructive sleep apnea (adult) (pediatric); I42.9 Cardiomyopathy, unspecified; F32.A Depression, unspecified; I27.20 Pulmonary hypertension, unspecified; Z95.810 Presence of automatic (implantable) cardiac defibrillator; Z79.82 Long term (current) use of aspirin; Z79.899 Other long term (current) drug therapy; Z79.52 Long term (current) use of systemic steroids; Z88.0 Allergy status to penicillin; Z87.891 Personal history of nicotine dependence
CPT/HCPCS: 36415; 71045; 80048; 80053; 80306; 82553; 83605; 83690; 83880; 84484; 85025; 93005; 94640; 96374; 96375; C9113; J1885; J1940; J2920; J2930; J7512; J7620; U0003; U0005